=== PATIENT | male | born 1955 | race African-American/Black ===

== ENCOUNTER 2024-02-24 06:15 | Inpatient (IN) ==
[2024-02-24] MEDS: NOZIN NASAL SANITIZER TP ONE (06:36)
[2024-02-24] MEDS: ANCEF VIAL 1 GRAM ONE (06:36)
[2024-02-24] MEDS: LR 1,000 ML IV 1,000 ML IV ONE (06:37)
--- NOTE | 2024-02-24 06:59 | EKG ---
Test Reason : pre op Blood Pressure : */* mmHG Vent. Rate : 60 BPM Atrial Rate : 60 BPM P-R Int : 164 ms QRS Dur : 88 ms QT Int : 418 ms P-R-T Axes : 65 31 57 degrees QTc Int : 418 ms Normal sinus rhythm Normal ECG No previous ECGs available Confirmed by Alen Medina MD ([id number]) on 02/24/2024 12:31:06 PM Referred By: Confirmed By: Alen Medina MD
--- NOTE | 2024-02-24 07:10 | RAD ---
EXAMINATION: CHEST, 1 VIEW HISTORY: PRE OP AORTOGRAM, ARTERIOGRAM ENDARTERECTOMY ; . COMPARISON STUDY: None. TECHNIQUE: Single frontal view of the chest FINDINGS: Lungs are expanded. No focal pulmonary infiltrates. Borderline cardiac silhouette enlargement. Nor mal pulmonary vascular pattern. Postsurgical changes mediastinum. CP angles are sharp. Bones are i ntact. IMPRESSION: No acute pulmonary infiltrate seen. THIS IS AN ELECTRONICALLY VERIFIED FINAL REPORT 02/24/2024 7:07 AM - Electronically signed by Shaina Jaimes MD
[2024-02-24 07:14] LABS: BASOPHILS # (AUTO) 0.2 X10^3/uL (0.0-0.1); BASOPHILS % (AUTO) 1.6 % (0.2-1.0); EOSINOPHILS # (AUTO) 0.4 x10^3/uL (0.0-0.2); EOSINOPHILS % (AUTO) 3.9 % (0.9-2.9); HEMATOCRIT 26.3 % (42.0-54.0); HEMOGLOBIN 8.1 g/dL (13.5-18.0); LYMPHOCYTES # (AUTO) 2.5 X10^3/uL (1.3-2.9); LYMPHOCYTES % (AUTO) 26.3 % (21.0-51.0); MEAN CORPUSCULAR HEMOGLOBIN 21.9 pg (27.0-34.0); MEAN CORPUSCULAR HGB CONC 30.9 g/dL (33.0-35.0); MEAN CORPUSCULAR VOLUME 71.1 fL (80.0-100.0); MEAN PLATELET VOLUME 8.3 fL (7.4-11.0); MONOCYTES # (AUTO) 0.6 x10^3/uL (0.3-0.8); MONOCYTES % (AUTO) 6.6 % (0.0-13.0); NEUTROPHILS # (AUTO) 5.9 x10^3/uL (2.2-4.8); NEUTROPHILS % (AUTO) 61.6 % (42.0-75.0); PLATELET COUNT 458 X10^3/uL (150.0-450.0); RED BLOOD COUNT 3.69 X10^6/uL (4.7-6.0); RED CELL DISTRIBUTION WIDTH 19.8 % (11.6-16.5); WHITE BLOOD COUNT 9.5 X10^3/uL (3.6-10.0)
[2024-02-24 07:34] LABS: ALANINE AMINOTRANSFERASE 14 Units/L (12-78); ALBUMIN 3.8 g/dL (3.4-5.0); ALKALINE PHOSPHATASE 101 Units/L (46-116); ASPARTATE AMINO TRANSFERASE 17 Units/L (15-37); BLOOD UREA NITROGEN 30 mg/dL (7-18); CHLORIDE 102 mmol/L (98-107); CREATININE 1.34 mg/dL (0.70-1.30); GLUCOSE 101 mg/dL (65-99); POTASSIUM 3.6 mmol/L (3.5-5.1); SODIUM 138 mmol/L (136-145); TOTAL PROTEIN 7.8 g/dL (6.4-8.2); eGFR NON BLACK RACES 56 (>60)
[2024-02-24 07:37] LABS: ANISOCYTOSIS SLIGHT; HYPOCHROMASIA 1+; MICROCYTOSIS SLIGHT; OVALOCYTES SLIGHT; PLATELET MORPHOLOGY COMMENT NORMAL (NORMAL); POIKILOCYTOSIS SLIGHT
[2024-02-24] MEDS: DIPRIVAN VIAL 20 ML ONE ×2 (07:46→08:19)
[2024-02-24] MEDS: KETAMINE 50 MG/5 ML-NACL SYRNG ONE (07:46)
[2024-02-24] MEDS: VERSED ONE (07:46)
[2024-02-24] MEDS: FENTANYL VIAL INJ 100 mcg ONE ×2 (07:46→10:40)
[2024-02-24] MEDS: NS 100 ML IV 100 ML ONE (07:46)
[2024-02-24] MEDS: PRECEDEX INJ VIAL ONE (08:01)
[2024-02-24] MEDS: MARCAINE 0.5% ONE ×2 (08:13→10:09)
[2024-02-24] MEDS: HEPARIN SODIUM IN D5W 75,000 UNITS/1,500 ML BAG ONE (08:13)
[2024-02-24] MEDS: ROBINUL ONE (08:27)
[2024-02-24] MEDS: PEPCID 20 MG VIAL ONE (08:27)
[2024-02-24] MEDS: ZOFRAN INJ 4 MG VIAL ONE (08:27)
[2024-02-24] MEDS: HEPARIN SODIUM INJ 5000 UNITS ONE ×3 (08:31→11:36)
[2024-02-24] MEDS: EPHEDRINE SULFATE INJ ONE (08:34)
[2024-02-24] MEDS: NEO-SYNEPHRINE INJ ONE (09:04)
[2024-02-24] MEDS: VISIPAQUE 50 ML ONE (09:27)
[2024-02-24] MEDS: VISIPAQUE 100 ML ONE (09:27)
[2024-02-24] MEDS ORDERED: BARHEMSYS INJ IVP PRN (09:35)
[2024-02-24] MEDS ORDERED: REGLAN INJ 10 MG VIAL IVP PRN (09:35)
[2024-02-24] MEDS ORDERED: DILAUDID INJ IVP PRN (09:35)
[2024-02-24] MEDS ORDERED: ZOFRAN INJ 4 MG VIAL IVP PRN (09:35)
[2024-02-24] MEDS ORDERED: BENADRYL INJ 50 MG VIAL IVP PRN (09:35)
[2024-02-24] MEDS: OFIRMEV IV 1000 MG VIAL 1,000 MG/100 ML VIAL IV ONE (09:38)
--- NOTE | 2024-02-24 12:24 | OR.IMMED ---
IMMEDIATE POST-OP NOTE Immediate Post-Op Note Date of surgery/procedure: 02/24/24 Pre-Op Diagnosis: Critical ischemia right leg Post-Op Diagnosis: same Procedure: right common femoral endarterectomy patch Angioplasty , aortogram, arteriogram right leg, femoral femoral bypass, stinting entire right superficial femoral and popliteal artery, drug coted balloon angioplast tibial peroneal trunk on right Description of Procedure: see dictation Surgeon/Rn Maternity: Cornelius Findings: completely occluded right common and right external iliac arteries, occluded right common femoral artery, ocluded right superfricial and popliteal arteries reconstitution of the tibial peroneal trunk with runoff mainly via the right posterior tibial artery Estimated Blood Loss: 400 cc Complications: none Progress Notes: admit to CCU
[2024-02-24 12:33] LABS: HEMATOCRIT 21.8 % (42.0-54.0)
[2024-02-24 12:52] LABS: HEMOGLOBIN 6.6 g/dL (13.5-18.0)
[2024-02-24] MEDS: LR 1,000 ML IV 1,000 ML IV SCH (13:04)
[2024-02-24] MEDS: DILAUDID INJ IVP PRN (13:28)
[2024-02-24] MEDS: ATIVAN INJ 2 MG VIAL IVP ONE ×2 (14:41→15:16)
[2024-02-24] MEDS: PROTAMINE SULFATE 50 MG VIAL ONE (17:05)
[2024-02-24] MEDS: PROTAMINE SULFATE IVP ONE (17:06)
[2024-02-24 21:52] LABS: HEMATOCRIT 24.2 % (42.0-54.0); HEMOGLOBIN 7.5 g/dL (13.5-18.0)
[2024-02-24] MEDS: DESYREL PO SCH (21:55)
--- NOTE | 2024-02-24 23:19 | NOTE.SOAP ---
Soap Note Note for Day of Date of Exam: 02/24/24 Subjective Data Subjective Data: S/P fem -fem bypass, right femoral endarterecomy and patch, stenting of right superficial femoral artery and drug coated balloon angioplasty of the right tibial peroneal trunk.Post op Hgb was 6.6 and received i unit of PRBCS and post transfusion Hgb is 7.5.Patient confused post op but htat is improved . Has some bleeding from groin incisions now resolved Objective Data Temperature: 98.1 F Pulse Rate: 82 Respiratory Rate: 21 Blood Pressure: 141/68 Objective Data: as above, biphasic doppler signal of right DP and PT arteries . Assessment Assessment: critical ischemia right leg Plan Plan: Arterila flow improved right leg , Monitor Hgb. Hopefully d/c in AM.
[2024-02-25] MEDS ORDERED: ULTRAM PO PRN (04:13)
[2024-02-25] MEDS: ZOFRAN INJ 4 MG VIAL IVP PRN (04:29)
[2024-02-25 04:49] LABS: BASOPHILS # (AUTO) 0.1 X10^3/uL (0.0-0.1); BASOPHILS % (AUTO) 0.4 % (0.2-1.0); HEMOGLOBIN 7.5 g/dL (13.5-18.0); LYMPHOCYTES # (AUTO) 1.3 X10^3/uL (1.3-2.9); MEAN CORPUSCULAR HEMOGLOBIN 22.6 pg (27.0-34.0); MEAN CORPUSCULAR HGB CONC 31.3 g/dL (33.0-35.0); MEAN CORPUSCULAR VOLUME 72.1 fL (80.0-100.0); MEAN PLATELET VOLUME 9.1 fL (7.4-11.0); MONOCYTES % (AUTO) 7.2 % (0.0-13.0); NEUTROPHILS # (AUTO) 11.1 x10^3/uL (2.2-4.8); NEUTROPHILS % (AUTO) 82.4 % (42.0-75.0); PLATELET COUNT 359 X10^3/uL (150.0-450.0); RED BLOOD COUNT 3.33 X10^6/uL (4.7-6.0); RED CELL DISTRIBUTION WIDTH 19.3 % (11.6-16.5); WHITE BLOOD COUNT 13.5 X10^3/uL (3.6-10.0)
[2024-02-25 05:17] LABS: ANISOCYTOSIS SLIGHT; HYPOCHROMASIA 1+; MICROCYTOSIS SLIGHT; OVALOCYTES PRESENT; PLATELET MORPHOLOGY COMMENT NORMAL (NORMAL)
[2024-02-25] MEDS: ZESTORETIC 20/25 MG PO SCH (07:34)
[2024-02-25] MEDS: ZESTORETIC 20/25 MG ONE (08:15)
[2024-02-25] MEDS: VASOTEC INJ 2.5 MG VIAL IVP ONE (08:20)
[2024-02-25] MEDS: NITROGLYCERIN IV PREMIX 50 MG 50 MG/250 ML BAG IV PRN (09:45)
[2024-02-25] MEDS: PROTONIX TAB 40 MG PO SCH (11:06)
[2024-02-25] MEDS: ASPIRIN EC 81 MG PO SCH (11:06)
[2024-02-25] MEDS: PLAVIX PO SCH (11:07)
[2024-02-25] MEDS: LIPITOR TAB 20 MG PO SCH (11:07)
[2024-02-25] MEDS: FLOMAX PO SCH (11:07)
[2024-02-25] MEDS: K-DUR TAB 20 MEQ PO SCH (11:07)
[2024-02-25] MEDS: LOVENOX INJ 40 MG SYR SC SCH (11:50)
--- NOTE | 2024-02-25 16:57 | NOTE.SOAP ---
Soap Note Note for Day of Date of Exam: 02/25/24 Subjective Data Subjective Data: POD # 1 , confusion resolved , rest pain right leg relieved , required 1 units of PRBCS and Hgb stable at 7.5 grams . Despite his usual BP meds and his assurance he has been taking these mediations regularly His BP this AM was > 200 mm of Hg systolic Objective Data Temperature: 98.8 F Pulse Rate: 74 Respiratory Rate: 21 Blood Pressure: 170/75 O2 Sat by Pulse Oximetry: 100 Objective Data: incisions clean and dry both groins , no hematoma , excellent doppler signals right ankle. Assessment Assessment: S/P complex hybrid procedure revascularization of the arterial flow right leg , doing well except for hypertention Plan Plan: Begin NTG drip to controi BP and consult interist supervisor computer operations to adjust his BP meds to better control his BP.
[2024-02-25] MEDS: CATAPRES-TTS-2 TD SCH (18:09)
[2024-02-25] MEDS: APRESOLINE INJ 20 MG VIAL IVP ONE (18:09)
[2024-02-25] MEDS: CATAPRES TAB 0.1 MG PO ONE (18:09)
[2024-02-25] MEDS: NS 250 ML IV 250 ML IV ONE (20:12)
[2024-02-25] MEDS: ALDACTONE TAB 25 MG PO SCH (21:02)
[2024-02-25] MEDS: NORVASC TAB 10 MG PO SCH (21:02)
[2024-02-25] MEDS: CHECK PATCH XX SCH (21:03)
[2024-02-26 05:00] LABS: BASOPHILS # (AUTO) 0.1 X10^3/uL (0.0-0.1); BASOPHILS % (AUTO) 0.5 % (0.2-1.0); EOSINOPHILS % (AUTO) 0.1 % (0.9-2.9); HEMATOCRIT 20.8 % (42.0-54.0); LYMPHOCYTES # (AUTO) 1.5 X10^3/uL (1.3-2.9); LYMPHOCYTES % (AUTO) 9.8 % (21.0-51.0); MEAN CORPUSCULAR HEMOGLOBIN 22.6 pg (27.0-34.0); MEAN CORPUSCULAR HGB CONC 31.6 g/dL (33.0-35.0); MEAN CORPUSCULAR VOLUME 71.6 fL (80.0-100.0); MEAN PLATELET VOLUME 9.3 fL (7.4-11.0); MONOCYTES # (AUTO) 1.5 x10^3/uL (0.3-0.8); NEUTROPHILS # (AUTO) 12.2 x10^3/uL (2.2-4.8); NEUTROPHILS % (AUTO) 79.6 % (42.0-75.0); PLATELET COUNT 289 X10^3/uL (150.0-450.0); RED BLOOD COUNT 2.91 X10^6/uL (4.7-6.0); RED CELL DISTRIBUTION WIDTH 19.8 % (11.6-16.5); WHITE BLOOD COUNT 15.4 X10^3/uL (3.6-10.0)
[2024-02-26 05:04] LABS: ALANINE AMINOTRANSFERASE 10 Units/L (12-78); ALBUMIN 2.6 g/dL (3.4-5.0); ALKALINE PHOSPHATASE 79 Units/L (46-116); ASPARTATE AMINO TRANSFERASE 15 Units/L (15-37); BLOOD UREA NITROGEN 12 mg/dL (7-18); CALCIUM 8.1 mg/dL (8.5-10.1); CARBON DIOXIDE 29.6 mmol/L (21-32); CHLORIDE 98 mmol/L (98-107); COR CA(FOR HYPOALB) 9.2 mg/dL (8.5-10.1); CREATININE 0.96 mg/dL (0.70-1.30); GLUCOSE 106 mg/dL (65-99); MAGNESIUM 1.5 mg/dL (2.0-2.9); POTASSIUM 3.7 mmol/L (3.5-5.1); SODIUM 132 mmol/L (136-145); TOTAL PROTEIN 6.1 g/dL (6.4-8.2); eGFR NON BLACK RACES > 60 (>60)
[2024-02-26 05:24] LABS: HEMOGLOBIN 6.6 g/dL (13.5-18.0)
[2024-02-26 05:25] LABS: ANISOCYTOSIS SLIGHT; HYPOCHROMASIA 1+; MICROCYTOSIS SLIGHT; PLATELET MORPHOLOGY COMMENT NORMAL (NORMAL)
[2024-02-26 05:26] LABS: OVALOCYTES SLIGHT
[2024-02-26] MEDS ORDERED: CONSULT PHARMACY - POTASSIUM & MAGNESIUM XX SCH (06:00)
[2024-02-26] MEDS: NS 500 ML IV 500 ML IV ONE (07:00)
[2024-02-26] MEDS: MAG-OX TAB PO SCH (09:05)
[2024-02-26] MEDS: NORCO 7.5/325 MG TAB PO PRN (12:32)
[2024-02-26] MEDS: VIBRAMYCIN 100 MG in D5W 250 ML IV 250 ML IV SCH (12:33)
[2024-02-26] MEDS: K-DUR TAB 20 MEQ PO ONE (12:33)
[2024-02-26 16:02] LABS: HEMATOCRIT 27.3 % (42.0-54.0)
--- NOTE | 2024-02-26 20:06 | DR.CONSULT ---
CONSULT Consultation for Day of: Date: 02/26/24 Chief Complaint Chief Complaint: HTN Allergies Allergies Allergy/AdvReac Type Severity Reaction Status Date / Time No Known Allergies Allergy Verified 02/24/24 07:33 History of Present Illness History of Present Illness: Medicine consulted due to severe hypertension postop. Here under vascular surgery's care with procedures to the RLE. Originally on a nitro drip but now on Zestoretic, Norvasc, and Aldactone p.o. with clonidine topically. Blood pressure doing much better this morning with no chest pain, VIVEROS, headache, or vision changes. Has had some postop anemia requiring a couple units of PRBCs. Also had some AMS after procedures but that has been fully resolved for greater than 24 hours. Patient's only complaint today is pain, asking to resume his home [place]. PMH: Hypertension, PAD. PSH: Right femoral bypass. Social: , lives with spouse. Retired. Does not smoke, drink, or do illicit drugs. Family: Positive for CAD, HTN, HLD. Parents . ROS: 12 point ROS negative except as noted in HPI. Vitals, labs, and imaging reviewed. PE: Thin, elderly male in NAD. Head NCAT. Hearing intact to conversation. EOMI. Heart regular in rhythm. Lungs clear with good speech and unlabored respirations. Belly is soft, nontender, nondistended with bowel sounds present. Past Medical History Past Medical History: Anemia and Hypertension Past Surgical History Surgical History: CABG/Valve Surgery, Cholecystectomy and Lithotripsy Family History Family Medical History: [place], Coronary Artery Disease and Hypertension Social History Does patient currently use any type of tobacco product: No Type of Tobacco Use: None Does any household member use tobacco: Yes ( smokes at home) Alcohol Use: None Drug Use: None Medications Home Medications: No Known Allergies Allergy (Verified 02/24/24 07:33) CONTINUE taking the following medications amoxicillin 500 mg capsule 500 mg PO TID 02/24/24 [History] atorvastatin 40 mg tablet 20 mg PO QDAY 02/24/24 [History] gabapentin 600 mg tablet 600 mg PO QID 02/24/24 [History] hydrochlorothiazide 12.5 mg tablet 12.5 mg PO QDAY 02/24/24 [History] hydrocodone 10 mg-acetaminophen 325 mg tablet 1 tab PO Q4H PRN Pain 02/24/24 [History] pantoprazole 40 mg tablet,delayed release 40 mg PO BID 02/24/24 [History] potassium chloride 20 mEq tablet,extended release 20 meq PO QDAY 02/24/24 [History] tamsulosin 0.4 mg capsule 0.4 mg PO QDAY 02/24/24 [History] trazodone 100 mg tablet 100 mg PO QPM 02/24/24 [History] Physical Exam Vital Signs: Vital Signs Temperature 98.7 F Temperature 99.0 F Temperature 98.3 F Temperature 98.7 F Pulse Rate 77 Pulse Rate 83 Pulse Rate 89 Pulse Rate 89 Pulse Rate 82 Pulse Rate 82 Pulse Rate 80 Respiratory Rate 15 Respiratory Rate 15 Respiratory Rate 24 Respiratory Rate 20 Respiratory Rate 18 Respiratory Rate 17 Respiratory Rate 20 Respiratory Rate 14 Blood Pressure 113/54 Blood Pressure 137/63 Blood Pressure 113/57 Blood Pressure 104/58 Blood Pressure 109/56 Blood Pressure 107/55 Blood Pressure 106/57 O2 Sat by Pulse Oximetry 100 O2 Sat by Pulse Oximetry 99 O2 Sat by Pulse Oximetry 99 O2 Sat by Pulse Oximetry 98 O2 Sat by Pulse Oximetry 97 O2 Sat by Pulse Oximetry 97 O2 Sat by Pulse Oximetry 98 Plan (1) Essential (primary) hypertension: Status: Chronic Narrative Support Text: Continue Zestoretic, Norvasc, and Aldactone p.o. Continue clonidine topical. Continue clonidine p.o. as needed with hydralazine IV as needed. Patient now weaned off nitro drip. (2) PAD (peripheral artery disease): Status: Chronic Narrative Support Text: Per primary vascular surgery team. (3) Hyponatremia: Status: Acute Narrative Support Text: Replete per protocol. (4) Hypomagnesemia: Status: Acute Narrative Support Text: Replete per protocol. (5) Anemia, chronic disease: Status: Chronic Narrative Support Text: Transfuse to keep Hgb greater than 7.
--- NOTE | 2024-02-26 21:51 | NOTE.SOAP ---
Soap Note Note for Day of Date of Exam: 02/26/24 Subjective Data Subjective Data: S/p revascularization of the right leg. Right leg without rest pain. BP now under control with po medications asn NTG drip has been turned off since last night.Eating well. No further bleeding from the groins . Hgb this AM was 6.6 . Objective Data Temperature: 98.4 F Pulse Rate: 90 Respiratory Rate: 24 Blood Pressure: 130/58 Objective Data: Groins clean and dry after dressings changed . Right foot arm with biphasic flow in AT, DP and PT arteries . Assessment Assessment: S/P revascularization of the right leg, Right leg doing well. BPM under contol Post transfusion Hgb =9.0 grams Plan Plan: D/C home in AM
--- NOTE | 2024-02-26 22:56 | DR.OPNOTE ---
OP NOTE Pre-Op Diagnosis: right [place] occlus, right SFA and right [place]ER HOSTESS occlus , disease right tib-peronea Post-Op Diagnosis: same Procedure Date Date Of Procedure: 02/24/24 Procedure: PROCEDURE : Right femoral endarterectomy and patch angioplasty, diagnostic aortogram, diagnostic arteriogram, femoral femoral bypass, stenting right superficial femoral artery, and Drug coated balloon angioplasty right tibial peroneal trunk NARRATIVE : The patient was taken to the operative suite and placed in the supine position. The entire right leg and the left groin were prepped and draped in sterile fashion. Time out for the procedure obtained. Patient was given IV sedation supervised by myself. The right groin infiltrated with 0.5% Marcaine and a vertical incision made. Patient became restless and required placement of an LMA catheter for anesthesia. Sharp dissectionwas carried down identifying the common femoral , super ficial femoral and profunda femoris arteries . Vessel loops placed around all arteries . Patient was given 3000 units of IV Heparin. After 3 minutes the common femoral artery was clamped and the other vessels occluded with the vessel loops . The common femoral artery opened with a number 11 knife blade and Pott's scissors and endarterectomy carried out with a Hale dissector . Intima of the take off of the superficial femoral artery tacked down with interrupted 6 -0 Prolene sutures. All floating material removed. The arteriotomy closed using a 0.8 by 8 cm bovine pericardial patch. All clamps removed. There was no bleeding from the patch. At this point a pursestring suture was placed in the patch with 5-0 Prolene suture and a needle placed through the pursestring and a 0 .012 inch wire placed . Over the wire we placed a micro sheath and exchanged the small wire for a 0.035 inch wire and the micro sheath for a 5 Fr vascular sheath . Multiple attempots were made to place a wire through the completely occluded ocommon iliac artery occlusion .They were all unsuccessful with the wire getting into the sub intimal space. The posterior tibial artery at the ankle identified with ultrasound and the skin overlying it infiltrated with 0.5% Marcaine . Ultrasound used to guide puncture of the right posterior tibial artery and a 0.012 inch wire placed. Incision made over the wire at the skin edge and a micro sheath placed over the guide wire into the posterior tibial artery . Arteriogram confirmed that we were in the psterior tibial artrey. We exchanged the micro sheath for a 4 Fr slim sheath and using a [place] catheter to [place] the completely occluded superficial femoral artery all the way to the patch. Arteriogram confirmed this. This was a selective catheterization. Because we could not enter the [place] artery from the patch we elected to perform a femoral femoral bypass. The skin of the left groin was infiltrated with 0.5 % Marcaine and a vertical incision made with a number of 15 blade knife .Sharp dissection carried down to find the palpable common femoral artery and vessels loops placed around the common femoral artery, the superficial femoral artery and the profunda femoris aretery . 8 millimeter gortex ringed graft was tunneled between the 2 groin incisions. Patient given an additional 3,000 units of IV Heparin. The left commoin femoral opened after clamping it and controlling the other vessels with the vessel loops . The graft fashioned for anastomosis and anastomosis carried out with running 5-0 Prolene suture . Areriial flow then allowed through the graft . The graft was clamped and the artery on the right side clamped again and the mid portion of the patch opened with the number 11 knife and Pott's scissors. The graft fashioned for anastomosis and we perormed anastomosis to the patch itself with running 5-0 Prolene suture . Graft opened re-establishing arterial flow to both legs. There was no active bleeding. A third dose of IV heparin had been given. From Below arteriogram carried out showing the completely occluded superficial femoral artery and popliteal artery as well as a severely diseased tibial peroneal trunk. At this point, we placed an Ailin 7 millimetre by 150 millimetre stent proximally followed this with a 6 millimeter x150 millimeter Ailin stent and a third 6 millimetre by 120 millimetre Elivia stent and a fourth stennt measuring 6 millimeter X 120 millimeters to completely line the superficial femoral and popliteal arteries with stents, . All stents balloon dilated with a 6 millimeter [place] balloon. Finally the tiibial peroneal trunk was balloon dilated with a drug-coated Tow 4 millimeter x 100 millimeter balloon inflating it for 3 minutes. After this, post procedure arteriogram showed excellent flow through the femoral femoral graft and through the entire right leg all the way to the ankle. At this point both groins closed with 2 layers of running 3 -0 Vicryl suture the skin closed with sameer. Tibial band was used to control the bleeding at the ankle where the posterior tibial artery had been accessed. Patient was extubated ated and taken to PACU for recovery and then to the ICU for continued care. Type of Anesthesia: Local (0.5% Marcaine ) Anesthesia Comment: plus MAC, converted to LMA Findings: as above Type of Fluids Used:: Lactated Ringers Total Amount of Fluid Infused:: 1600 cc Urine output: 350 cc EBL: 400 cc Hardware: Ailin stents x 4 in right SFA Complications:: none Needle/Sponge Count:: correct Disposition/Condition: Pt. tolerated procedure without difficulty. Extubated in the OR and taken to PACU in stable condition.
[2024-02-27 06:04] LABS: BASOPHILS # (AUTO) 0.1 X10^3/uL (0.0-0.1); BASOPHILS % (AUTO) 0.6 % (0.2-1.0); EOSINOPHILS # (AUTO) 0.3 x10^3/uL (0.0-0.2); EOSINOPHILS % (AUTO) 1.8 % (0.9-2.9); HEMATOCRIT 24.8 % (42.0-54.0); HEMOGLOBIN 8.3 g/dL (13.5-18.0); LYMPHOCYTES # (AUTO) 1.8 X10^3/uL (1.3-2.9); LYMPHOCYTES % (AUTO) 12.4 % (21.0-51.0); MEAN CORPUSCULAR HGB CONC 33.3 g/dL (33.0-35.0); MEAN PLATELET VOLUME 9.3 fL (7.4-11.0); MONOCYTES # (AUTO) 1.4 x10^3/uL (0.3-0.8); MONOCYTES % (AUTO) 9.9 % (0.0-13.0); NEUTROPHILS # (AUTO) 10.9 x10^3/uL (2.2-4.8); NEUTROPHILS % (AUTO) 75.3 % (42.0-75.0); PLATELET COUNT 257 X10^3/uL (150.0-450.0); RED CELL DISTRIBUTION WIDTH 21.2 % (11.6-16.5); WHITE BLOOD COUNT 14.5 X10^3/uL (3.6-10.0)
[2024-02-27 06:25] LABS: ALANINE AMINOTRANSFERASE 11 Units/L (12-78); ALBUMIN 2.4 g/dL (3.4-5.0); ALKALINE PHOSPHATASE 76 Units/L (46-116); ASPARTATE AMINO TRANSFERASE 17 Units/L (15-37); BLOOD UREA NITROGEN 15 mg/dL (7-18); CALCIUM 8.4 mg/dL (8.5-10.1); CHLORIDE 98 mmol/L (98-107); COR CA(FOR HYPOALB) 9.7 mg/dL (8.5-10.1); GLUCOSE 107 mg/dL (65-99); MAGNESIUM 1.7 mg/dL (2.0-2.9); SODIUM 132 mmol/L (136-145); TOTAL PROTEIN 6.2 g/dL (6.4-8.2); eGFR NON BLACK RACES > 60 (>60)
[2024-02-27 06:47] LABS: PLATELET MORPHOLOGY COMMENT NORMAL (NORMAL)
[2024-02-27 06:48] LABS: ANISOCYTOSIS 1+; HYPOCHROMASIA SLIGHT; MICROCYTOSIS SLIGHT
[2024-02-27] MEDS ORDERED: CONSULT PHARMACY - POTASSIUM & MAGNESIUM XX SCH (07:00)
[2024-02-27] MEDS: MAG-OX TAB PO SCH (08:54)
[2024-02-27 13:18] VITALS: TEMP 98
--- NOTE | 2024-02-27 14:17 | NOTE.SOAP ---
Soap Note Note for Day of Date of Exam: 02/27/24 Subjective Data Subjective Data: Patient did well overnight. BP now on the lower end. Denies any new complaints. Surgery thinking of discharging later today. Objective Data Objective Data: Developed, well-nourished male in no acute distress. Hearing intact conversation. Head NCAT. Heart regular rate and rhythm. Lungs are clear bilat erally. Mood and affect appropriate. Bowel sounds present and belly is soft and nontender. Little bit of edema of the right leg that is nonpitting. Assessment Assessment: 1. Ess HTN 2. PAD 3. Anemia of chronic disease Plan Plan: Stop clonidine patch. Continue other meds at discharge. F/U with PCP for repeat labs and med adjustments.
--- NOTE | 2024-02-27 15:17 | W.DIS.FURT ---
Summary of Discharge Discharge Summary of Date Date of Exam: 02/27/24 Admission Date Date of Admission: 02/24/24 Admission Diagnosis Hospital Course: This is a 69 year old male with significant peripheral vascular disease known to have complete occlusion of the right common jah artery and complete occlusion of the right superficial femoral artery. He required a hybrid procedure of attempted stenting of the right common iliac artery after right common femoral endarterectomy and Patch angioplasty for his common femoral occlusion but I could not a wire across the right iliac artery occlusion into the [place] aorta . Therefore he underwent a femoral femoral bypass and stenting of the right superficial femoral artery. He has done well in that regard with excellent biphasic doppler signals in both the anterior tibial and posrterior tibial arteries. Post procedure he did have some bleeding from his groin incisions and did require 2 units of packed red blood cells. A t time of discharge his hemoglobin is 8.3 grams. He also had some hypertension despite his usual home medication and was seen in consultation by Dr Ballard who added a regimen of spironolactone and Norvasc to his current blood pressure medications. He will be discharged home with this time. Encourage ambulation. He may shower and get the wounds in the groins damp but pat them dry dry. He will follow up with me in 1 week. At that time we will consider removing sameer in each groin incision and he will need to be scheduled for intervention of the left superficial artery occlusion. Vital Signs: Vital Signs (72 hours) 02/24/24 23:19 02/25/24 16:57 02/26/24 21:51 Temperature 98.1 F 98.8 F 98.4 F Pulse Rate 82 74 90 Pulse Rate [Radial] Respiratory Rate 21 21 24 Blood Pressure 141/68 170/75 130/58 Blood Pressure [Left Arm] O2 Sat by Pulse Oximetry 100 Oxygen Delivery Method 02/24/24 15:44 02/24/24 15:46 02/24/24 16:40 Temperature 98.3 F 98.3 F 94.9 F L Pulse Rate Pulse Rate [Radial] 72 72 61 Respiratory Rate 17 17 12 Blood Pressure Blood Pressure [Left Arm] 151/82 151/82 177/83 O2 Sat by Pulse Oximetry 100 100 100 Oxygen Delivery Method 02/24/24 16:40 02/24/24 17:00 02/24/24 17:38 Temperature 94.9 F L 94.9 F L 97.6 F Pulse Rate Pulse Rate [Radial] 61 66 94 H Respiratory Rate 12 14 19 Blood Pressure Blood Pressure [Left Arm] 177/83 134/73 107/69 O2 Sat by Pulse Oximetry 100 100 100 Oxygen Delivery Method 02/24/24 17:57 02/24/24 18:00 02/24/24 18:26 Temperature 96.5 F L 69.1 F L 97.5 F L Pulse Rate Pulse Rate [Radial] 71 Respiratory Rate 15 Blood Pressure Blood Pressure [Left Arm] 121/70 O2 Sat by Pulse Oximetry 100 Oxygen Delivery Method 02/24/24 19:00 02/24/24 19:00 02/24/24 20:00 Temperature 98.1 F Pulse Rate Pulse Rate [Radial] 103 H 93 H Respiratory Rate 20 14 Blood Pressure Blood Pressure [Left Arm] 106/68 127/72 O2 Sat by Pulse Oximetry 100 100 Oxygen Delivery Method Room Air Room Air Room Air 02/24/24 21:00 02/24/24 21:54 02/25/24 01:17 Temperature Pulse Rate Pulse Rate [Radial] 71 Respiratory Rate 19 20 78 H Blood Pressure Blood Pressure [Left Arm] 156/81 O2 Sat by Pulse Oximetry 100 Oxygen Delivery Method Room Air 02/24/24 22:00 02/24/24 23:00 02/25/24 00:00 Temperature 98.1 F Pulse Rate Pulse Rate [Radial] 82 67 65 Respiratory Rate 21 16 20 Blood Pressure Blood Pressure [Left Arm] 141/68 146/65 154/71 O2 Sat by Pulse Oximetry 100 100 100 Oxygen Delivery Method Room Air Room Air Room Air 02/24/24 22:24 02/25/24 01:00 02/25/24 02:00 Temperature Pulse Rate Pulse Rate [Radial] 67 60 Respiratory Rate 18 22 14 Blood Pressure Blood Pressure [Left Arm] 179/82 172/74 O2 Sat by Pulse Oximetry 100 100 Oxygen Delivery Method Room Air Room Air 02/25/24 01:47 02/25/24 04:29 02/25/24 03:00 Temperature Pulse Rate Pulse Rate [Radial] 72 Respiratory Rate 20 18 17 Blood Pressure Blood Pressure [Left Arm] 170/81 O2 Sat by Pulse Oximetry 99 Oxygen Delivery Method Room Air 02/25/24 04:00 02/25/24 04:59 02/25/24 05:00 Temperature 98.4 F Pulse Rate Pulse Rate [Radial] 76 60 Respiratory Rate 17 17 14 Blood Pressure Blood Pressure [Left Arm] 170/76 140/66 O2 Sat by Pulse Oximetry 99 100 Oxygen Delivery Method Room Air Room Air 02/25/24 06:00 02/25/24 07:00 02/25/24 15:28 Temperature 98.7 F Pulse Rate Pulse Rate [Radial] 62 62 Respiratory Rate 12 15 15 Blood Pressure Blood Pressure [Left Arm] 188/88 203/88 O2 Sat by Pulse Oximetry 99 99 Oxygen Delivery Method Room Air Room Air 02/25/24 08:00 02/25/24 09:00 02/25/24 10:00 Temperature 97.9 F 97.9 F Pulse Rate Pulse Rate [Radial] 71 64 66 Respiratory Rate 23 16 17 Blood Pressure Blood Pressure [Left Arm] 213/93 208/90 215/88 O2 Sat by Pulse Oximetry 100 100 100 Oxygen Delivery Method Room Air Room Air Room Air 02/25/24 11:00 02/25/24 07:00 02/25/24 12:00 Temperature 97.5 F L Pulse Rate Pulse Rate [Radial] 66 67 Respiratory Rate 15 22 Blood Pressure Blood Pressure [Left Arm] 173/81 181/83 O2 Sat by Pulse Oximetry 100 100 Oxygen Delivery Method Room Air Room Air Room Air 02/25/24 13:00 02/25/24 14:00 02/25/24 15:00 Temperature 97.5 F L 98.5 F Pulse Rate Pulse Rate [Radial] 67 67 76 Respiratory Rate 20 15 15 Blood Pressure Blood Pressure [Left Arm] 194/81 182/83 149/67 O2 Sat by Pulse Oximetry 100 100 100 Oxygen Delivery Method Room Air Room Air Room Air 02/25/24 16:00 02/25/24 15:58 02/25/24 17:00 Temperature 98.8 F 98.7 F Pulse Rate Pulse Rate [Radial] 74 69 Respiratory Rate 21 21 19 Blood Pressure Blood Pressure [Left Arm] 170/75 183/79 O2 Sat by Pulse Oximetry 100 100 Oxygen Delivery Method Room Air Room Air 02/25/24 17:21 02/25/24 18:00 02/25/24 17:41 Temperature 98.7 F Pulse Rate Pulse Rate [Radial] 89 Respiratory Rate 14 Blood Pressure Blood Pressure [Left Arm] 167/78 174/73 159/73 O2 Sat by Pulse Oximetry 100 Oxygen Delivery Method Room Air 02/25/24 19:01 02/25/24 19:00 02/25/24 19:00 Temperature Pulse Rate Pulse Rate [Radial] 90 90 Respiratory Rate 16 16 Blood Pressure Blood Pressure [Left Arm] 151/65 151/65 O2 Sat by Pulse Oximetry 98 98 Oxygen Delivery Method Room Air Room Air Room Air 02/25/24 22:00 02/25/24 23:00 02/26/24 00:00 Temperature 99.1 F Pulse Rate 101 H 96 H 90 Pulse Rate [Radial] Respiratory Rate 20 22 24 Blood Pressure 96/52 119/65 133/61 Blood Pressure [Left Arm] O2 Sat by Pulse Oximetry 98 98 97 Oxygen Delivery Method Room Air Room Air Room Air 02/26/24 01:00 02/26/24 03:00 02/25/24 20:00 Temperature 98.4 F Pulse Rate 89 79 101 H Pulse Rate [Radial] Respiratory Rate 26 H 14 21 Blood Pressure 115/58 119/56 145/67 Blood Pressure [Left Arm] O2 Sat by Pulse Oximetry 98 99 95 Oxygen Delivery Method Room Air Room Air Room Air 02/25/24 21:09 02/25/24 21:00 02/25/24 21:39 Temperature Pulse Rate 98 H Pulse Rate [Radial] Respiratory Rate 20 24 17 Blood Pressure 148/70 Blood Pressure [Left Arm] O2 Sat by Pulse Oximetry 100 Oxygen Delivery Method Room Air 02/26/24 01:54 02/26/24 02:00 02/26/24 02:24 Temperature Pulse Rate 86 Pulse Rate [Radial] Respiratory Rate 24 20 20 Blood Pressure 95/50 Blood Pressure [Left Arm] O2 Sat by Pulse Oximetry 98 Oxygen Delivery Method Room Air 02/26/24 04:00 02/26/24 05:00 02/26/24 06:00 Temperature 98.4 F Pulse Rate 77 80 82 Pulse Rate [Radial] Respiratory Rate 15 14 20 Blood Pressure 113/54 106/57 107/55 Blood Pressure [Left Arm] O2 Sat by Pulse Oximetry 100 98 97 Oxygen Delivery Method Room Air Room Air Room Air 02/26/24 07:00 02/26/24 07:00 02/26/24 08:00 Temperature 98.7 F 98.3 F Pulse Rate 82 89 Pulse Rate [Radial] Respiratory Rate 17 18 Blood Pressure 109/56 104/58 Blood Pressure [Left Arm] O2 Sat by Pulse Oximetry 97 98 Oxygen Delivery Method Room Air Room Air Room Air 02/26/24 09:00 02/26/24 10:00 02/26/24 11:00 Temperature 99.0 F 98.7 F Pulse Rate 89 83 77 Pulse Rate [Radial] Respiratory Rate 20 24 15 Blood Pressure 113/57 137/63 113/54 Blood Pressure [Left Arm] O2 Sat by Pulse Oximetry 99 99 100 Oxygen Delivery Method Room Air Room Air Room Air 02/26/24 12:32 02/26/24 12:00 02/26/24 13:00 Temperature 98.7 F 98.5 F Pulse Rate 83 88 Pulse Rate [Radial] Respiratory Rate 15 17 20 Blood Pressure 118/57 145/67 Blood Pressure [Left Arm] O2 Sat by Pulse Oximetry 97 100 Oxygen Delivery Method Room Air Room Air 02/26/24 14:00 02/26/24 13:32 02/26/24 15:00 Temperature 98.5 F 98.4 F Pulse Rate 79 87 Pulse Rate [Radial] Respiratory Rate 26 H 14 22 Blood Pressure 145/65 151/72 Blood Pressure [Left Arm] O2 Sat by Pulse Oximetry 100 100 Oxygen Delivery Method Room Air Room Air 02/26/24 16:00 02/26/24 17:00 02/26/24 18:00 Temperature Pulse Rate 83 84 82 Pulse Rate [Radial] Respiratory Rate 17 15 22 Blood Pressure 140/63 178/65 156/65 Blood Pressure [Left Arm] O2 Sat by Pulse Oximetry 100 100 100 Oxygen Delivery Method Room Air Room Air Room Air 02/26/24 19:28 02/26/24 21:07 02/26/24 19:00 Temperature Pulse Rate Pulse Rate [Radial] Respiratory Rate 20 20 Blood Pressure Blood Pressure [Left Arm] O2 Sat by Pulse Oximetry Oxygen Delivery Method Room Air 02/26/24 19:00 02/26/24 20:00 02/26/24 19:58 Temperature 98.4 F Pulse Rate 84 90 Pulse Rate [Radial] Respiratory Rate 20 24 20 Blood Pressure 156/69 130/58 Blood Pressure [Left Arm] O2 Sat by Pulse Oximetry 100 96 Oxygen Delivery Method Room Air Room Air 02/26/24 21:00 02/26/24 22:00 02/26/24 23:00 Temperature Pulse Rate 91 H 88 81 Pulse Rate [Radial] Respiratory Rate 23 19 24 Blood Pressure 136/65 116/59 111/56 Blood Pressure [Left Arm] O2 Sat by Pulse Oximetry 98 99 99 Oxygen Delivery Method Room Air Room Air Room Air 02/27/24 00:00 02/26/24 22:07 02/27/24 01:07 Temperature 98.4 F Pulse Rate 74 Pulse Rate [Radial] Respiratory Rate 24 20 16 Blood Pressure 115/56 Blood Pressure [Left Arm] O2 Sat by Pulse Oximetry 97 Oxygen Delivery Method Room Air 02/27/24 01:00 02/27/24 02:00 02/27/24 03:00 Temperature Pulse Rate 81 82 68 Pulse Rate [Radial] Respiratory Rate 15 20 14 Blood Pressure 123/59 133/62 96/54 Blood Pressure [Left Arm] O2 Sat by Pulse Oximetry 97 98 97 Oxygen Delivery Method Room Air Room Air Room Air 02/27/24 04:00 02/27/24 05:00 02/27/24 01:37 Temperature 98.1 F Pulse Rate 66 66 Pulse Rate [Radial] Respiratory Rate 15 13 14 Blood Pressure 105/56 103/52 Blood Pressure [Left Arm] O2 Sat by Pulse Oximetry 96 99 Oxygen Delivery Method Room Air Room Air 02/27/24 06:00 02/26/24 21:30 02/26/24 21:45 Temperature Pulse Rate 68 84 82 Pulse Rate [Radial] Respiratory Rate 21 26 H 17 Blood Pressure 101/51 Blood Pressure [Left Arm] O2 Sat by Pulse Oximetry 96 99 97 Oxygen Delivery Method Room Air 02/26/24 22:00 02/26/24 22:01 02/26/24 22:01 Temperature Pulse Rate 86 88 Pulse Rate [Radial] Respiratory Rate 29 H 19 Blood Pressure 116/59 Blood Pressure [Left Arm] O2 Sat by Pulse Oximetry 97 99 Oxygen Delivery Method 02/26/24 22:15 02/26/24 22:30 02/26/24 22:45 Temperature Pulse Rate 89 75 79 Pulse Rate [Radial] Respiratory Rate 17 19 18 Blood Pressure Blood Pressure [Left Arm] O2 Sat by Pulse Oximetry 100 98 98 Oxygen Delivery Method 02/26/24 23:00 02/26/24 23:00 02/26/24 23:15 Temperature Pulse Rate 81 81 Pulse Rate [Radial] Respiratory Rate 26 H 22 Blood Pressure 111/56 Blood Pressure [Left Arm] O2 Sat by Pulse Oximetry 99 98 Oxygen Delivery Method 02/26/24 23:30 02/26/24 23:45 02/27/24 00:00 Temperature Pulse Rate 80 77 74 Pulse Rate [Radial] Respiratory Rate 20 22 24 Blood Pressure Blood Pressure [Left Arm] O2 Sat by Pulse Oximetry 99 98 97 Oxygen Delivery Method 02/27/24 00:00 02/27/24 00:15 02/27/24 00:30 Temperature Pulse Rate 80 81 Pulse Rate [Radial] Respiratory Rate 26 H 23 Blood Pressure 115/56 Blood Pressure [Left Arm] O2 Sat by Pulse Oximetry 100 97 Oxygen Delivery Method 02/27/24 00:45 02/27/24 01:00 02/27/24 01:00 Temperature Pulse Rate 88 77 Pulse Rate [Radial] Respiratory Rate 30 H 22 Blood Pressure 123/59 Blood Pressure [Left Arm] O2 Sat by Pulse Oximetry 98 99 Oxygen Delivery Method 02/27/24 01:15 02/27/24 01:30 02/27/24 01:45 Temperature Pulse Rate 79 75 77 Pulse Rate [Radial] Respiratory Rate 19 29 H 27 H Blood Pressure Blood Pressure [Left Arm] O2 Sat by Pulse Oximetry 98 96 96 Oxygen Delivery Method 02/27/24 02:00 02/27/24 02:00 02/27/24 02:15 Temperature Pulse Rate 91 H 76 Pulse Rate [Radial] Respiratory Rate 25 H 18 Blood Pressure 133/61 Blood Pressure [Left Arm] O2 Sat by Pulse Oximetry 99 96 Oxygen Delivery Method 02/27/24 02:30 02/27/24 02:45 02/27/24 03:00 Temperature Pulse Rate 72 77 Pulse Rate [Radial] Respiratory Rate 20 28 H Blood Pressure 96/54 Blood Pressure [Left Arm] O2 Sat by Pulse Oximetry 97 100 Oxygen Delivery Method 02/27/24 03:00 02/27/24 03:15 02/27/24 03:30 Temperature Pulse Rate 68 68 69 Pulse Rate [Radial] Respiratory Rate 14 14 14 Blood Pressure Blood Pressure [Left Arm] O2 Sat by Pulse Oximetry 97 97 98 Oxygen Delivery Method 02/27/24 03:45 02/27/24 04:00 02/27/24 04:00 Temperature Pulse Rate 80 66 Pulse Rate [Radial] Respiratory Rate 33 H 15 Blood Pressure 105/56 Blood Pressure [Left Arm] O2 Sat by Pulse Oximetry 97 96 Oxygen Delivery Method 02/27/24 04:15 02/27/24 04:30 02/27/24 04:45 Temperature Pulse Rate 70 72 74 Pulse Rate [Radial] Respiratory Rate 20 15 14 Blood Pressure Blood Pressure [Left Arm] O2 Sat by Pulse Oximetry 96 96 96 Oxygen Delivery Method 02/27/24 05:00 02/27/24 05:00 02/27/24 05:15 Temperature Pulse Rate 70 70 Pulse Rate [Radial] Respiratory Rate 13 13 Blood Pressure 103/52 Blood Pressure [Left Arm] O2 Sat by Pulse Oximetry 95 97 Oxygen Delivery Method 02/27/24 05:30 02/27/24 05:45 02/27/24 06:00 Temperature Pulse Rate 68 69 Pulse Rate [Radial] Respiratory Rate 15 16 Blood Pressure 101/51 Blood Pressure [Left Arm] O2 Sat by Pulse Oximetry 96 96 Oxygen Delivery Method 02/27/24 06:00 02/27/24 06:15 02/27/24 06:30 Temperature Pulse Rate 68 80 77 Pulse Rate [Radial] Respiratory Rate 21 19 18 Blood Pressure Blood Pressure [Left Arm] O2 Sat by Pulse Oximetry 96 96 97 Oxygen Delivery Method 02/27/24 06:45 02/27/24 06:59 02/27/24 07:00 Temperature Pulse Rate 77 75 Pulse Rate [Radial] Respiratory Rate 16 17 Blood Pressure 85/54 Blood Pressure [Left Arm] O2 Sat by Pulse Oximetry 96 97 Oxygen Delivery Method 02/27/24 07:00 02/27/24 07:00 02/27/24 07:15 Temperature Pulse Rate 78 91 H Pulse Rate [Radial] Respiratory Rate 12 38 H Blood Pressure Blood Pressure [Left Arm] O2 Sat by Pulse Oximetry 97 97 Oxygen Delivery Method Room Air 02/27/24 07:30 02/27/24 07:45 02/27/24 08:00 Temperature 99.1 F Pulse Rate 89 79 Pulse Rate [Radial] Respiratory Rate 41 H 21 Blood Pressure 108/52 Blood Pressure [Left Arm] O2 Sat by Pulse Oximetry 96 96 Oxygen Delivery Method 02/27/24 08:00 02/27/24 08:15 02/27/24 08:30 Temperature Pulse Rate 80 78 79 Pulse Rate [Radial] Respiratory Rate 27 H 31 H 16 Blood Pressure Blood Pressure [Left Arm] O2 Sat by Pulse Oximetry 93 L 97 97 Oxygen Delivery Method 02/27/24 08:45 02/27/24 08:54 02/27/24 08:54 Temperature Pulse Rate 75 87 Pulse Rate [Radial] Respiratory Rate 13 20 Blood Pressure 104/58 Blood Pressure [Left Arm] O2 Sat by Pulse Oximetry 98 97 Oxygen Delivery Method 02/27/24 09:00 02/27/24 09:00 02/27/24 09:00 Temperature Pulse Rate 82 Pulse Rate [Radial] Respiratory Rate 23 Blood Pressure 114/56 114/56 Blood Pressure [Left Arm] O2 Sat by Pulse Oximetry 97 Oxygen Delivery Method 02/27/24 09:00 02/27/24 09:15 02/27/24 09:30 Temperature Pulse Rate 83 79 Pulse Rate [Radial] Respiratory Rate 20 15 Blood Pressure 114/56 Blood Pressure [Left Arm] O2 Sat by Pulse Oximetry 99 97 Oxygen Delivery Method 02/27/24 09:45 02/27/24 10:00 02/27/24 10:01 Temperature Pulse Rate 71 80 Pulse Rate [Radial] Respiratory Rate 17 22 Blood Pressure 114/56 Blood Pressure [Left Arm] O2 Sat by Pulse Oximetry 99 98 Oxygen Delivery Method 02/27/24 10:01 02/27/24 10:01 02/27/24 10:15 Temperature Pulse Rate 82 81 Pulse Rate [Radial] Respiratory Rate 20 27 H Blood Pressure 114/56 Blood Pressure [Left Arm] O2 Sat by Pulse Oximetry 99 98 Oxygen Delivery Method 02/27/24 10:30 02/27/24 10:45 02/27/24 11:00 Temperature Pulse Rate 76 85 73 Pulse Rate [Radial] Respiratory Rate 19 35 H 20 Blood Pressure Blood Pressure [Left Arm] O2 Sat by Pulse Oximetry 98 100 97 Oxygen Delivery Method 02/27/24 11:00 02/27/24 11:00 02/27/24 11:00 Temperature Pulse Rate Pulse Rate [Radial] Respiratory Rate Blood Pressure 105/58 105/58 105/58 Blood Pressure [Left Arm] O2 Sat by Pulse Oximetry Oxygen Delivery Method 02/27/24 11:00 02/27/24 11:15 02/27/24 11:30 Temperature Pulse Rate 76 81 Pulse Rate [Radial] Respiratory Rate 16 20 Blood Pressure 105/58 Blood Pressure [Left Arm] O2 Sat by Pulse Oximetry 98 99 Oxygen Delivery Method 02/27/24 11:45 02/27/24 12:00 02/27/24 12:00 Temperature Pulse Rate 75 65 Pulse Rate [Radial] Respiratory Rate 18 11 L Blood Pressure 105/55 Blood Pressure [Left Arm] O2 Sat by Pulse Oximetry 99 99 Oxygen Delivery Method 02/27/24 12:15 02/27/24 12:30 02/27/24 12:45 Temperature 98.0 F Pulse Rate 70 83 79 Pulse Rate [Radial] Respiratory Rate 14 19 23 Blood Pressure Blood Pressure [Left Arm] O2 Sat by Pulse Oximetry 99 98 100 Oxygen Delivery Method 02/27/24 13:00 02/27/24 13:00 02/27/24 13:00 Temperature Pulse Rate Pulse Rate [Radial] Respiratory Rate Blood Pressure 114/53 114/53 114/53 Blood Pressure [Left Arm] O2 Sat by Pulse Oximetry Oxygen Delivery Method 02/27/24 13:00 02/27/24 13:15 02/27/24 13:30 Temperature Pulse Rate 81 82 78 Pulse Rate [Radial] Respiratory Rate 18 23 17 Blood Pressure Blood Pressure [Left Arm] O2 Sat by Pulse Oximetry 99 99 100 Oxygen Delivery Method 02/27/24 13:45 02/27/24 14:00 02/27/24 14:00 Temperature Pulse Rate 84 75 Pulse Rate [Radial] Respiratory Rate 34 H 20 Blood Pressure 92/55 Blood Pressure [Left Arm] O2 Sat by Pulse Oximetry 100 97 Oxygen Delivery Method Labs: Laboratory Last Values WBC 14.5 X10^3/uL (3.6-10.0) H 02/27/24 04:05 RBC 3.30 X10^6/uL (4.7-6.0) L 02/27/24 04:05 Hgb 8.3 g/dL (13.5-18.0) L 02/27/24 04:05 Hct 24.8 % (42.0-54.0) L 02/27/24 04:05 MCV 75.0 fL (80.0-100.0) L 02/27/24 04:05 MCH 25.0 pg (27.0-34.0) L 02/27/24 04:05 MCHC 33.3 g/dL (33.0-35.0) 02/27/24 04:05 RDW 21.2 % (11.6-16.5) H 02/27/24 04:05 Plt Count 257 X10^3/uL (150.0-450.0) 02/27/24 04:05 Plt Count Comment Adequate (ADEQUATE) 02/27/24 04:05 MPV 9.3 fL (7.4-11.0) 02/27/24 04:05 Neut % (Auto) 75.3 % (42.0-75.0) H 02/27/24 04:05 Lymph % (Auto) 12.4 % (21.0-51.0) L 02/27/24 04:05 Fleming % (Auto) 9.9 % (0.0-13.0) 02/27/24 04:05 Eos % (Auto) 1.8 % (0.9-2.9) 02/27/24 04:05 Baso % (Auto) 0.6 % (0.2-1.0) 02/27/24 04:05 Neut # (Auto) 10.9 x10^3/uL (2.2-4.8) H 02/27/24 04:05 Lymph # (Auto) 1.8 X10^3/uL (1.3-2.9) 02/27/24 04:05 Fleming # (Auto) 1.4 x10^3/uL (0.3-0.8) H 02/27/24 04:05 Eos # (Auto) 0.3 x10^3/uL (0.0-0.2) H 02/27/24 04:05 Baso # (Auto) 0.1 X10^3/uL (0.0-0.1) 02/27/24 04:05 Absolute Nucleated RBC 0.1 /100WBC 02/27/24 04:05 Plt Morphology Comment Normal (NORMAL) 02/27/24 04:05 RBC Morphology Abnormal (NORMAL) 02/27/24 04:05 Hypochromasia Slight A 02/27/24 04:05 Poikilocytosis Slight A 02/24/24 07:02 Anisocytosis 1+ A 02/27/24 04:05 Microcytosis Slight A 02/27/24 04:05 Ovalocytes Slight A 02/26/24 04:00 Acanthocytes (Spur) Present 02/25/24 04:11 Sodium 132 mmol/L (136-145) L 02/27/24 04:05 Corrected Sodium TNP 02/27/24 04:05 Potassium 4.0 mmol/L (3.5-5.1) 02/27/24 04:05 Chloride 98 mmol/L (98-107) 02/27/24 04:05 Carbon Dioxide 30.0 mmol/L (21-32) 02/27/24 04:05 BUN 15 mg/dL (7-18) 02/27/24 04:05 Creatinine 1.00 mg/dL (0.70-1.30) 02/27/24 04:05 Est GFR (MDRD) Af Amer > 60 (>60) 02/27/24 04:05 Est GFR (MDRD) Non-Af > 60 (>60) 02/27/24 04:05 Glucose 107 mg/dL (65-99) H 02/27/24 04:05 Calcium 8.4 mg/dL (8.5-10.1) L 02/27/24 04:05 Corrected Calcium 9.7 mg/dL (8.5-10.1) 02/27/24 04:05 Magnesium 1.7 mg/dL (2.0-2.9) L 02/27/24 04:05 Total Bilirubin 0.60 mg/dL (0.2-1.0) 02/27/24 04:05 AST 17 Units/L (15-37) 02/27/24 04:05 ALT 11 Units/L (12-78) L 02/27/24 04:05 Alkaline Phosphatase 76 Units/L (46-116) 02/27/24 04:05 Total Protein 6.2 g/dL (6.4-8.2) L 02/27/24 04:05 Albumin 2.4 g/dL (3.4-5.0) L 02/27/24 04:05 Globulin 3.8 g/dL (2.5-4.5) 02/27/24 04:05 Albumin/Globulin Ratio 0.6 Ratio (1.1-2.1) L 02/27/24 04:05 Blood Type O POSITIVE 02/24/24 07:02 Blood Type O POSITIVE 02/24/24 07:02 Antibody Screen Negative 02/24/24 07:02 Crossmatch See Detail 02/24/24 07:02 Reason For Visit: AORTOGRAM ARTERIOGRAM ENDARTERECTOMY Discharge Date Discharge Date: 02/27/24 Discharge Diagnosis All Active Problems (Updated 02/27/24 @ 15:04 by Raymundo Shields) Atherosclerosis of [place] arteries of extremities with rest pain, left leg (Acute) Atherosclerosis of [place] arteries of extremities with rest pain, right leg (Acute) Anemia, chronic disease (Chronic) Hypomagnesemia (Acute) Hyponatremia (Acute) PAD (peripheral artery disease) (Chronic) Essential (primary) hypertension (Chronic) Plan of Treatment: Continue with present treatment and follow up plan. Pt is to keep follow up appointment as instructed and take medications as ordered. Discharge Medications Discharge Medications: No Known Allergies Allergy (Verified 02/24/24 07:33) CONTINUE taking the following medications atorvastatin 40 mg tablet 20 mg PO QDAY 02/24/24 [History] gabapentin 600 mg tablet 600 mg PO QID 02/24/24 [History] hydrochlorothiazide 12.5 mg tablet 12.5 mg PO QDAY 02/24/24 [History] hydrocodone 10 mg-acetaminophen 325 mg tablet 1 tab PO Q4H PRN Pain 02/24/24 [History] pantoprazole 40 mg tablet,delayed release 40 mg PO BID 02/24/24 [History] potassium chloride 20 mEq tablet,extended release 20 meq PO QDAY 02/24/24 [History] tamsulosin 0.4 mg capsule 0.4 mg PO QDAY 02/24/24 [History] trazodone 100 mg tablet 100 mg PO QPM 02/24/24 [History] Norvasc 10 mg po qhs Sipronalactone 25 mg po daily Discharge Disposition Assessment: see hospital course Discharge Plan Discharge Plan Hospital Course: This is a 69 year old male with significant peripheral vascular disease known to have complete occlusion of the right common jah artery and complete occlusion of the right superficial femoral artery. He required a hybrid procedure of attempted stenting of the right common iliac artery after right common femoral endarterectomy and Patch angioplasty for his common femoral occlusion but I could not a wire across the right iliac artery occlusion into the [place] aorta . Therefore he underwent a femoral femoral bypass and stenting of the right superficial femoral artery. He has done well in that regard with excellent biphasic doppler signals in both the anterior tibial and posrterior tibial arteries. Post procedure he did have some bleeding from his groin incisions and did require 2 units of packed red blood cells. A t time of discharge his hemoglobin is 8.3 grams. He also had some hypertension despite his usual home medication and was seen in consultation by Dr Ballard who added a regimen of spironolactone and Norvasc to his current blood pressure medications. He will be discharged home with this time. Encourage ambulation. He may shower and get the wounds in the groins damp but pat them dry dry. He will follow up with me in 1 week. At that time we will consider removing sameer in each groin incision and he will need to be scheduled for intervention of the left superficial artery occlusion. Patient Disposition: 01 HOME, SELF-CARE Condition: Stable Health Concerns: Post Hospitalization: new medications and changes needed to prevent readmission or further decline. Pt educated and given instructions on all concerns. Care Plan Goals: Problem: Pain/Alteration in Comfort Goal: Improve/ Resolve Pain; Achieve Pain Tolerance Instructions: Take pain medications as prescribed. Contact your primary care provider if your pain is unrelieved or worsens. Follow up with primary care provider as directed. Plan of Treatment: Continue with present treatment and follow up plan. Pt is to keep follow up appointment as instructed and take medications as ordered. Assessment: see hospital course Prescriptions: New aspirin 81 mg Tablet,Delayed Release (Dr/Ec) 81 mg PO DAILY Qty: 120 6RF spironolactone 25 mg Tablet 25 mg PO DAILY Qty: 90 0RF amlodipine 10 mg Tablet 10 mg PO HS Qty: 90 3RF oxycodone-acetaminophen [Percocet] 5-325 mg tablet 1 tab PO Q6H MDD 4 PRNQty: 30 0RF Continued atorvastatin 40 mg Tablet 20 mg PO QDAY gabapentin 600 mg Tablet 600 mg PO QID tamsulosin 0.4 mg Capsule 0.4 mg PO QDAY trazodone 100 mg tablet 100 mg PO QPM pantoprazole 40 mg Tablet,Delayed Release (Dr/Ec) 40 mg PO BID hydrochlorothiazide 12.5 mg tablet 12.5 mg PO QDAY potassium chloride 20 mEq Tablet Extended Release 20 meq PO QDAY Discontinued amoxicillin 500 mg capsule 500 mg PO TID hydrocodone-acetaminophen 10-325 mg tablet 1 tab PO Q4H PRN (Reason: Pain) Follow ups/Referrals Follow ups/Referrals: FARA GALDAMEZ [Primary Care Provider] - (Follow up as needed.) Raymundo Shields [STAFF PHYSICIAN] - 1 WEEK Instructions Instructions: Endovascular Therapy for Peripheral Vascular Disease: What to Know After, Carotid Endarterectomy, Care After, Pain Medicine Instructions, [id number] Stand Alone Forms: Post Hospital Follow Up Care
[2024-02-27 15:19] VITALS: BP 116/57; O2SAT 100
[2024-02-27 15:38] VITALS: PULSE 77; RESP 27
== END 2024-02-27 16:56 | disposition home or self-care (01) | DRG 253 ==
LOC: ICU 06:15
PROVIDERS: ADMIT Surgery; ATTEND Surgery
DX: I10 Essential (primary) hypertension; E78.5 Hyperlipidemia, unspecified; I70.221 Atherosclerosis of native arteries of extremities with rest pain, right leg; I73.89 Other specified peripheral vascular diseases; E87.1 Hypo-osmolality and hyponatremia; D63.8 Anemia in other chronic diseases classified elsewhere; E83.42 Hypomagnesemia; I87.2 Venous insufficiency (chronic) (peripheral)

== ENCOUNTER 2024-12-19 08:21 | Observation (INO) ==
[2024-12-19] MEDS: REGLAN INJ 10 MG VIAL ONE (09:08)
[2024-12-19] MEDS: ZOFRAN INJ 4 MG VIAL ONE (09:08)
[2024-12-19] MEDS: DECADRON INJ ONE (09:08)
[2024-12-19] MEDS: VERSED ONE (09:24)
[2024-12-19] MEDS: FENTANYL VIAL INJ 100 mcg ONE (09:24)
--- NOTE | 2024-12-19 09:28 | EKG ---
Test Reason : pre op Blood Pressure : */* mmHG Vent. Rate : 54 BPM Atrial Rate : 54 BPM P-R Int : 170 ms QRS Dur : 88 ms QT Int : 438 ms P-R-T Axes : 76 63 63 degrees QTc Int : 415 ms Sinus bradycardia Otherwise normal ECG When compared with ECG of 02-MAR-2024 13:10, Criteria for Septal infarct are no longer present Confirmed by Alen Medina MD ([id number]) on 12/20/2024 5:59:44 AM Referred By: Confirmed By: Alen Medina MD
[2024-12-19 09:31] LABS: MEAN PLATELET VOLUME 9.4 fL (7.4-11.0); RED CELL DISTRIBUTION WIDTH 14.5 % (11.6-16.5)
[2024-12-19] MEDS: LR 1,000 ML IV 1,000 ML IV ONE (09:37)
--- NOTE | 2024-12-19 09:40 | RAD ---
EXAMINATION: CHEST, 1 VIEW HISTORY: pre op vas sx; . COMPARISON STUDY: 02/24/2024 TECHNIQUE: A single view of the chest was obtained. FINDINGS: Previous median sternotomy. Heart size is normal. No acute infiltrates. There is no pneumothorax. Hilar and mediastinal structures and bony structures are unremarkable. . IMPRESSION: No acute process in the chest. THIS IS AN ELECTRONICALLY VERIFIED FINAL REPORT 12/19/2024 9:35 AM - Electronically signed by Abilio Hermosillo MD
[2024-12-19 09:52] LABS: CREATININE 1.19 mg/dL (0.70-1.30); eGFR NON BLACK RACES > 60 (>60)
[2024-12-19] MEDS: REGLAN INJ 10 MG VIAL IVP PRN (10:00)
[2024-12-19] MEDS: ZOFRAN INJ 4 MG VIAL IVP PRN (10:00)
[2024-12-19] MEDS: PEPCID 20 MG VIAL IVP PRN (10:00)
[2024-12-19] MEDS: LR 1,000 ML IV 900 ML IV PRN (10:00)
[2024-12-19] MEDS: PEPCID 20 MG VIAL ONE (10:01)
[2024-12-19] MEDS: OFIRMEV IV 1000 MG VIAL 1,000 MG/100 ML VIAL IV ONE (10:04)
[2024-12-19] MEDS: ANCEF VIAL 1 GRAM IV PRN (10:10)
[2024-12-19] MEDS: NS 100 ML IV 100 ML ONE (10:13)
[2024-12-19] MEDS: ANCEF VIAL 1 GRAM ONE (10:13)
[2024-12-19] MEDS: VERSED IVP PRN (10:16)
[2024-12-19] MEDS: FENTANYL VIAL INJ 100 mcg IVP PRN (10:22)
[2024-12-19] MEDS ORDERED: XYLOCAINE 2 % (PLAIN) PRN (10:23)
[2024-12-19] MEDS: DIPRIVAN VIAL 140 ML IVP PRN (10:23)
[2024-12-19] MEDS: EPHEDRINE SULFATE INJ ONE (10:25)
[2024-12-19] MEDS: EPHEDRINE SULFATE INJ IVP PRN (10:33)
[2024-12-19] MEDS: NEO-SYNEPHRINE INJ ONE ×2 (10:34)
[2024-12-19] MEDS: HEPARIN 1,000 UNIT/500 ML-NS 3,000 UNIT/1,500 ML IV.SOLN ONE (10:43)
[2024-12-19] MEDS: MARCAINE 0.5% ONE (10:43)
[2024-12-19] MEDS ORDERED: ULTANE GAS IN ONE (10:45)
[2024-12-19] MEDS ORDERED: XYLOCAINE 2 % (PLAIN) ONE (10:45)
[2024-12-19] MEDS: HEPARIN SODIUM INJ 5000 UNITS ONE ×2 (10:46→11:42)
[2024-12-19] MEDS: NEO-SYNEPHRINE INJ IVP PRN (10:55)
[2024-12-19] MEDS ORDERED: BARHEMSYS INJ IVP PRN (10:56)
[2024-12-19] MEDS ORDERED: ZOFRAN INJ 4 MG VIAL IVP PRN (10:56)
[2024-12-19] MEDS ORDERED: BENADRYL INJ 50 MG VIAL IVP PRN (10:56)
[2024-12-19] MEDS: OFIRMEV IV 1000 MG VIAL 1,000 MG/100 ML VIAL IV PRN (10:58)
[2024-12-19] MEDS ORDERED: HEPARIN SODIUM INJ 5000 UNITS IVP PRN (11:46)
[2024-12-19] MEDS ORDERED: KETAMINE HCL ONE (12:05)
[2024-12-19] MEDS ORDERED: SUPRANE IN ONE (12:05)
--- NOTE | 2024-12-19 12:48 | OR.IMMED ---
IMMEDIATE POST-OP NOTE Immediate Post-Op Note Date of surgery/procedure: 12/19/24 Pre-Op Diagnosis: Critical ischemia left leg with left occluded superficial femoral artery Post-Op Diagnosis: Occluded left superficial femoral artery along its length with severe disease of the tibioperoneal trunk, patent left iliac stent, occluded femoral-femoral bypass graft from left to right. Unable to explore or assess the right leg previous intervention most likely it is occluded as well as the patient has no inflow from the femorofemoral graft. Procedure: Aortogram, arteriogram of the left leg, attempt at crossing the occluded superficial artery back into the [place] vessel near the common femoral artery unsuccessful spite multiple attempts from above and below. Balloon angioplasty of the common femoral artery and attempt to get back in the lumen. Unsuccessful Description of Procedure: dictated Surgeon/Dump Operator: Cornelius Findings: as above Estimated Blood Loss: <100cc Complications: none Progress Notes: Patient to be admitted for observation. Unable to reestablish flow of the left leg now with occluded femoral-femoral graft and probably occluded right lower extremity as well. Will admit for observation and plan open procedure starting from the left groin to perform thrombectomy of the femoral graft and reestablish flow to the left leg. Patient may need flow reestablished to the right leg as well hopefully through the same incision of left groin but may need another incision in the right groin as well.
[2024-12-19] MEDS: DILAUDID INJ ONE (13:08)
[2024-12-19] MEDS: DILAUDID INJ IVP PRN (13:10)
[2024-12-19] MEDS: PERCOCET TAB 5/325 MG PO PRN (13:36)
[2024-12-19] MEDS: NEURONTIN TAB 600 MG PO SCH (13:39)
[2024-12-19] MEDS: NS 1,000 ML IV 1,000 ML ONE (13:39)
[2024-12-19] MEDS: LR 1,000 ML IV 1,000 ML IV SCH (13:40)
[2024-12-19 14:34] VITALS: BMI 22.3
[2024-12-19] MEDS: CATAPRES TAB 0.1 MG PO ONE (14:41)
[2024-12-19] MEDS: APRESOLINE INJ 20 MG VIAL IVP ONE (15:26)
[2024-12-19] MEDS: DESYREL PO SCH (21:16)
[2024-12-19] MEDS: LOVENOX INJ 80 MG SYR SC SCH (21:17)
[2024-12-20 05:00] LABS: MEAN PLATELET VOLUME 10.1 fL (7.4-11.0); RED CELL DISTRIBUTION WIDTH 14.5 % (11.6-16.5)
[2024-12-20 05:04] LABS: CREATININE 0.90 mg/dL (0.70-1.30); eGFR NON BLACK RACES > 60 (>60)
[2024-12-20] MEDS: FLOMAX PO SCH (09:33)
[2024-12-20] MEDS: LIPITOR TAB 20 MG PO SCH (09:33)
[2024-12-20] MEDS: PROTONIX TAB 40 MG PO SCH (09:33)
[2024-12-20] MEDS: ZESTORETIC 20/25 MG PO SCH (09:33)
[2024-12-20] MEDS: ASPIRIN EC 81 MG PO SCH (09:34)
[2024-12-20] MEDS: PLAVIX PO SCH (09:34)
--- NOTE | 2024-12-20 12:49 | DR.OPNOTE ---
OP NOTE Pre-Op Diagnosis: Critical ischemia left leg Post-Op Diagnosis: Same, see findings below Procedure Date Date Of Procedure: 12/19/24 Procedure: PROCEDURE: Diagnostic aortogram, diagnostic arteriogram left leg, angioplasty left proximal superficial femoral artery NARRATIVE: The patient was taken to the operative suite and placed in the supine position. The right groin and entire left leg and lower abdomen were prepped and draped in sterile fashion. Patient was given intravenous sedation supervised by myself. Timeout for the procedure obtained. Ultrasound used to study the midportion of the femorofemoral graft but this graft was now occluded. This is a new finding as the patient originally had the femoral-femoral bypass graft placed almost 10 months ago and at that time had arterial invention of the right leg, primarily with atherectomy and stenting of the right superficial femoral artery along its length. We are here to deal with the left leg. Patient has had previous left iliac artery stenting prior to the femoral-femoral bypass. Since the femoropopliteal bypass was occluded we elected to go antegrade from the ankle. The left posterior tibial artery identified at the ankle with ultrasound and the skin overlying it infiltrated with 0.5 % Marcaine and a 18-gauge needle used to puncture the posterior artery and a 0.012 inch guidewire placed. Incision made over the guidewire with a number 11knife blade and a micro sheath placed over the guidewire into the posterior tibial artery. Arteriogram showed we were indeed in the posterior tibial artery. There appeared to be good flow the posterior with tibial artery all the way to the ankle with reconstitution of the peroneal artery. Patient had evidence of having disease of the tibioperoneal trunk near complete occlusion and complete occlusion of the superficial femoral artery at the adductor canal and along its entire length. Over this wire we placed a 4 to 7 [place] sheath and used a [place] catheter and 0.035 inch wire and a 0.018 wire to try to get across occlusion of the superficial femoral artery back into the [place] vessel in the iliac artery but were unsuccessful. Therefore from the left arm we prepped and draped the left brachial artery and identified it above the antecubital fossa with ultrasound and used ultrasound-guided puncture of this with with a needle and a 0.12 inch guidewire placed. Incision made over the guidewire and a micro sheath was placed over the guidewire into the brachial artery. A 0.035 inch wire was placed and the micro sheath exchanged for a 6 [place] vascular sheath. Under direct vision the guidewire was guided down the aorta to the distal aorta and arteriogram carried out of the aorta showing the left iliac stents to be patent. 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 From above and below we placed the wires and approached the takeoff of the superficial femoral artery but could not enter the lumen. We ballooned this in the femoral artery area try to get back into the lumen but were unsuccessful. Also , I could not tell exactly where the femoral-femoral graft came in. Therefore the patient will require open procedure with planned exploration of th e left groin with declotting of the femoral-femoral graft, atherectomy and probable stenting of the left superficial femoral artery and possible intervention of the right leg. That will be done at a later time. The sheath in the left brachial artery was removed and a tibial band used to control hemostasis. Patient given 5000 units of IV heparin to begin the case and had been given additional 3000 units at 1 hour. There was no reversal given. The sheath in the posterior tibial artery was left in place and the patient will be given therapeutic doses of Lovenox as well as infusion of normal saline through this sheath. We will need this sheath access for intervention of the left leg in the future . Patient tolerated all this very well was taken to the floor in good condition. Type of Anesthesia: Local (0.5% Marcaine) Anesthesia Comment: plus MAC Findings: Completely occluded left superficial femoral artery, severe disease of the left tibioperoneal trunk, patent left iliac artery stent, occluded femoral- femoral bypass. Unable to explore assess right leg previous intervention from the left side but most likely it is occluded as well. Type of Fluids Used:: Lactated Ringers Total Amount of Fluid Infused:: 900cc Urine output: 100cc EBL: < 50 cc Complications:: none Needle/Sponge Count:: correct Disposition/Condition: Pt. tolerated procedure without difficulty. Extubated in the OR and taken to PACU in stable condition.
--- NOTE | 2024-12-20 23:37 | NOTE.SOAP ---
Soap Note Note for Day of Date of Exam: 12/20/24 Subjective Data Subjective Data: Unable to perform revascularization of the left leg as I cannot get a wire across the superficial femoral artery occlusion back into the lumen of the iliac artery. Also the femoral-femoral bypass from left to right is occluded. I am unsure as to the degree of possible occlusion of the right leg which has previously been done over 10 months ago. Plan for open intervention of the left groin tomorrow with declotting of the femoral-femoral graft and peripheral based arterial intervention of the left leg. May require right leg intervention as well. Objective Data Temperature: 98.0 F Pulse Rate: 84 Respiratory Rate: 19 Blood Pressure: 114/56 O2 Sat by Pulse Oximetry: 100 Objective Data: Cool feet bilaterally. No pulse in the femoral-femoral graft. Hemoglobin equals 9.4 g. Creatinine equals 0.90 Assessment Assessment: Critical ischemia of the left leg with occluded femoral-femoral bypass graft from left to right. Possible significant ischemia right leg as well. Plan Plan: Will plan open exploration through the left groin tomorrow with thrombectomy of the femoral-femoral graft. Endarterectomy and patch angioplasty of the leftb common femoral artery and possible peripheral based arterial intervention of the left leg. Risk and benefits discussed with the patient and he agrees to proceed.
[2024-12-21 05:55] LABS: MEAN PLATELET VOLUME 9.7 fL (7.4-11.0); RED CELL DISTRIBUTION WIDTH 14.5 % (11.6-16.5)
[2024-12-21] MEDS: HIBICLENS WASH EXT ONE (06:01)
[2024-12-21 06:12] LABS: COR CA(FOR HYPOALB) 9.3 mg/dL (8.5-10.1); CREATININE 1.00 mg/dL (0.70-1.30); eGFR NON BLACK RACES > 60 (>60)
[2024-12-21] MEDS: VERSED ONE (11:38)
[2024-12-21] MEDS: DIPRIVAN VIAL 20 ML ONE (11:38)
[2024-12-21] MEDS: FENTANYL VIAL INJ 100 mcg ONE (11:38)
[2024-12-21] MEDS: NS 100 ML IV 100 ML ONE (12:29)
[2024-12-21] MEDS: ANCEF VIAL 1 GRAM ONE (12:29)
[2024-12-21] MEDS: ANCEF VIAL 1 GRAM IV PRN (12:35)
[2024-12-21] MEDS: LR IV PRN (12:35)
[2024-12-21] MEDS: VERSED IVP PRN (12:37)
[2024-12-21] MEDS: PEPCID 20 MG VIAL IVP PRN (12:38)
[2024-12-21] MEDS: ZOFRAN INJ 4 MG VIAL IVP PRN (12:38)
[2024-12-21] MEDS ORDERED: XYLOCAINE 2 % (PLAIN) PRN (12:42)
[2024-12-21] MEDS: ROBINUL IVP PRN (12:42)
[2024-12-21] MEDS: DIPRIVAN VIAL 150 ML IVP PRN (12:42)
[2024-12-21] MEDS: ROBINUL ONE (12:50)
[2024-12-21] MEDS: NEO-SYNEPHRINE INJ ONE (12:57)
[2024-12-21] MEDS: NS 1,000 ML IV 350 ML IV PRN (12:58)
[2024-12-21] MEDS: NS 500 ML IV 500 ML IV ONE (12:58)
[2024-12-21] MEDS: MARCAINE 0.5% ONE (12:59)
[2024-12-21] MEDS: HEPARIN 1,000 UNIT/500 ML-NS 3,000 UNIT/1,500 ML IV.SOLN ONE (12:59)
[2024-12-21] MEDS: PEPCID 20 MG VIAL ONE (13:01)
[2024-12-21] MEDS: NEO-SYNEPHRINE INJ IVP PRN (13:04)
[2024-12-21] MEDS: HEPARIN SODIUM INJ 5000 UNITS ONE ×3 (13:23→15:23)
[2024-12-21] MEDS: OFIRMEV IV 1000 MG VIAL 1,000 MG/100 ML VIAL IV ONE (13:23)
[2024-12-21] MEDS: VISIPAQUE 100 ML ONE (13:36)
[2024-12-21] MEDS: VISIPAQUE ONE (13:36)
[2024-12-21] MEDS: LR 1,000 ML IV 1,000 ML IV ONE (13:43)
[2024-12-21] MEDS: OFIRMEV IV 1000 MG VIAL 1,000 MG/100 ML VIAL IV PRN (14:15)
[2024-12-21] MEDS: KETAMINE HCL IV PRN (14:32)
[2024-12-21] MEDS: FENTANYL VIAL INJ 100 mcg IVP PRN (14:33)
[2024-12-21] MEDS ORDERED: DILAUDID INJ IVP PRN (14:57)
[2024-12-21] MEDS ORDERED: BARHEMSYS INJ IVP PRN (14:57)
[2024-12-21] MEDS ORDERED: REGLAN INJ 10 MG VIAL IVP PRN (14:57)
[2024-12-21] MEDS ORDERED: BENADRYL INJ 50 MG VIAL IVP PRN (14:57)
[2024-12-21] MEDS ORDERED: ZOFRAN INJ 4 MG VIAL IVP PRN (14:57)
[2024-12-21] MEDS ORDERED: HEPARIN SODIUM INJ 5000 UNITS IVP PRN (15:23)
[2024-12-21] MEDS: PROTAMINE SULFATE 50 MG VIAL IVP PRN (15:51)
[2024-12-21] MEDS: PROTAMINE SULFATE 50 MG VIAL ONE (15:51)
[2024-12-21] MEDS: DILAUDID INJ ONE (16:00)
[2024-12-21] MEDS: DILAUDID INJ IVP PRN (16:16)
--- NOTE | 2024-12-21 16:51 | OR.IMMED ---
IMMEDIATE POST-OP NOTE Immediate Post-Op Note Date of surgery/procedure: 12/21/24 Pre-Op Diagnosis: Critical ischemia left leg with complete occlusion of left superficial femoral and popliteal arteries and occluded femoral-femoral bypass graft PROCEDURE : left common femoral endarterectomy, patch angioplasty, thrombectomy of fem- fem graft , reanastomosis of fem - fem graft onto patch of left common femoral artery , arteriogram left leg , arteriogram right leg , stenting entire left superficial femoral and popliteal arteries Procedure: see above Description of Procedure: dictated Surgeon/Etl Informatica Developer: Shadi Shields MD, FACS Findings: Completely occluded femoral-femoral graft created for right iliac artery occlusion, complete occlusion of the left common femoral artery left superficial femoral artery and left popliteal artery with runoff via the posterior tibial and peroneal arteries. Patient has evidence of thrombus down the right superficial femoral artery previously placed stents. This will need to be addressed at a later time as the leg is not in jeopardy at this time Estimated Blood Loss: 250 cc Complications: none Progress Notes: To PACU then to the floor. Will obtain CBC in a couple hours and in the morning. Continue therapeutic Lovenox ,aspirin and Plavix
[2024-12-21 20:05] LABS: MEAN PLATELET VOLUME 9.8 fL (7.4-11.0); RED CELL DISTRIBUTION WIDTH 14.6 % (11.6-16.5)
[2024-12-21] MEDS: FLOMAX PO SCH (20:29)
[2024-12-22 05:48] LABS: MEAN PLATELET VOLUME 10.0 fL (7.4-11.0); RED CELL DISTRIBUTION WIDTH 14.5 % (11.6-16.5)
[2024-12-22 05:58] LABS: CREATININE 0.80 mg/dL (0.70-1.30); eGFR NON BLACK RACES > 60 (>60)
[2024-12-22] MEDS: COLACE CAP 100 MG PO PRN (08:46)
[2024-12-22] MEDS: MILK OF MAGNESIA PO PRN (22:33)
[2024-12-23] MEDS ORDERED: ZOFRAN INJ 4 MG VIAL ONE (00:13)
[2024-12-23] MEDS: ZOFRAN INJ 4 MG VIAL IVP PRN (00:17)
[2024-12-23] MEDS ORDERED: CONSULT PHARMACY - POTASSIUM & MAGNESIUM XX SCH (08:00)
[2024-12-23] MEDS: MAG-OX TAB PO SCH (08:39)
--- NOTE | 2024-12-23 11:17 | W.DIS.FURT ---
Summary of Discharge Discharge Summary of Date Date of Exam: 12/23/24 Admission Date Date of Admission: 12/19/24 Admission Diagnosis Hospital Course: This is a 69-year-old male who approximatly 10 months ago had undergone a femoral-femoral bypass for a right occluded iliac artery and at that time underwent stenting of the right superficial femoral artery. He had done well initially and was supposed to see me back in a couple weeks to perform intervention of the left leg for completely occluded left superficial femoral artery. Unfortunately , he had an illness in the family and it has been 10 months. We planned to perform intervention of the left leg on 19 December , At that time however he had complete occlusion of the left superficial femoral artery and also the femoral-femoral graft was now occluded occluded. I could no t get a wire across superficial femoral artery either from above or below. There appeared to be a dense plaque at the common femoral artery where the femoral-femoral graft was anastomosed to the common femoral artery. Therefore we elected to come back another day for open- hybrid procedure. He was brought back to the operating room on 21 December where he underwent left femoral endarterectomy, patch angioplasty, thrombectomy of the femoral-femoral graft with hybrid approach from the posterior tibial artery ankle and stenting of the left superficial femoral artery. He has done well and he and has excellent Doppler signals at the ankle on the left side. He also has good Doppler signal in the femoral-femoral graft. The right superficial artery stents are now occluded . He does however have good runoff on the right side through a large profunda artery. I will address the occluded right superficial femoral artery stent at a later time. After the first procedure he had a drop in his hem oglobin secondary to hematoma in the left arm from a needlestick. He did receive 1 unit of packed red blood cells. Hemoglobin at time of discharge is 8.2 g. and is stablre . He will be discharged home on his usual home medications with the inclusion of aspirin 81 mg daily as well as Xarelto 2.5 mg twice daily. He will follow-up in 1 week at that time we will plan intervention of the right leg. Vital Signs: Vital Signs (72 hours) 12/20/24 12:00 12/20/24 16:00 12/20/24 16:59 Temperature 98.4 F 98.2 F Pulse Rate Pulse Rate [Left Radial] 81 85 Respiratory Rate 19 20 18 Blood Pressure Blood Pressure [Left Arm] 118/58 125/64 O2 Sat by Pulse Oximetry 100 98 Oxygen Delivery Method Room Air Room Air 12/20/24 19:00 12/20/24 19:29 12/20/24 20:00 Temperature 98.0 F Pulse Rate 78 Pulse Rate [Left Radial] 84 Respiratory Rate 19 Blood Pressure Blood Pressure [Left Arm] 114/56 O2 Sat by Pulse Oximetry 99 100 Oxygen Delivery Method Room Air Room Air 12/20/24 23:37 12/20/24 23:58 12/21/24 00:16 Temperature 98.0 F 97.6 F Pulse Rate 84 Pulse Rate [Left Radial] 83 Respiratory Rate 19 19 19 Blood Pressure 114/56 Blood Pressure [Left Arm] 136/65 O2 Sat by Pulse Oximetry 100 100 Oxygen Delivery Method Room Air 12/21/24 01:16 12/21/24 04:00 12/21/24 04:12 Temperature 98.8 F Pulse Rate Pulse Rate [Left Radial] 93 H Respiratory Rate 18 18 18 Blood Pressure Blood Pressure [Left Arm] 142/64 O2 Sat by Pulse Oximetry 96 Oxygen Delivery Method Room Air 12/21/24 05:12 12/21/24 07:00 12/21/24 07:48 Temperature 98.2 F Pulse Rate Pulse Rate [Left Radial] 80 Respiratory Rate 18 19 Blood Pressure Blood Pressure [Left Arm] 129/60 O2 Sat by Pulse Oximetry 100 Oxygen Delivery Method Room Air Room Air 12/21/24 08:36 12/21/24 12:16 12/21/24 16:14 Temperature 97.9 F 97.5 F L Pulse Rate 84 110 H Pulse Rate [Left Radial] Respiratory Rate 18 20 Blood Pressure 136/73 128/64 Blood Pressure [Left Arm] O2 Sat by Pulse Oximetry 97 98 Oxygen Delivery Method Room Air Room Air Aerosol Face Tent 12/21/24 16:19 12/21/24 16:24 12/21/24 16:29 Temperature Pulse Rate 108 H 110 H 101 H Pulse Rate [Left Radial] Respiratory Rate 20 18 18 Blood Pressure 135/65 128/59 128/59 Blood Pressure [Left Arm] O2 Sat by Pulse Oximetry 96 95 94 L Oxygen Delivery Method Aerosol Face Tent Room Air Room Air 12/21/24 16:34 12/21/24 16:39 12/21/24 16:44 Temperature 97.7 F Pulse Rate 101 H 95 H 96 H Pulse Rate [Left Radial] Respiratory Rate 18 18 18 Blood Pressure 133/61 127/55 142/65 Blood Pressure [Left Arm] O2 Sat by Pulse Oximetry 94 L 94 L 95 Oxygen Delivery Method Room Air Room Air Room Air 12/21/24 16:50 12/21/24 17:05 12/21/24 17:20 Temperature 97.8 F 97.8 F 97.9 F Pulse Rate Pulse Rate [Left Radial] 92 H 84 75 Respiratory Rate 18 16 18 Blood Pressure Blood Pressure [Left Arm] 124/60 135/63 132/62 O2 Sat by Pulse Oximetry 97 96 97 Oxygen Delivery Method 12/21/24 17:35 12/21/24 17:50 12/21/24 18:50 Temperature 97.9 F 98.0 F 98.0 F Pulse Rate Pulse Rate [Left Radial] 75 76 76 Respiratory Rate 17 18 19 Blood Pressure Blood Pressure [Left Arm] 132/60 154/72 153/71 O2 Sat by Pulse Oximetry 97 100 100 Oxygen Delivery Method 12/21/24 19:00 12/21/24 19:50 12/21/24 20:50 Temperature 97.8 F 98.4 F Pulse Rate Pulse Rate [Left Radial] 62 87 Respiratory Rate 18 19 Blood Pressure Blood Pressure [Left Arm] 157/73 161/73 O2 Sat by Pulse Oximetry 97 97 Oxygen Delivery Method Room Air 12/21/24 21:50 12/21/24 23:58 12/22/24 00:00 Temperature 98.2 F 98.0 F Pulse Rate Pulse Rate [Left Radial] 75 89 Respiratory Rate 21 18 20 Blood Pressure Blood Pressure [Left Arm] 161/72 117/54 O2 Sat by Pulse Oximetry 100 97 Oxygen Delivery Method Room Air 12/22/24 00:58 12/22/24 04:00 12/22/24 06:02 Temperature 98.1 F Pulse Rate Pulse Rate [Left Radial] 101 H Respiratory Rate 18 19 19 Blood Pressure Blood Pressure [Left Arm] 109/56 O2 Sat by Pulse Oximetry 100 Oxygen Delivery Method Room Air 12/22/24 07:00 12/22/24 07:02 12/22/24 07:42 Temperature 98.7 F Pulse Rate Pulse Rate [Left Radial] 99 H Respiratory Rate 18 18 Blood Pressure Blood Pressure [Left Arm] 110/55 O2 Sat by Pulse Oximetry 100 Oxygen Delivery Method Room Air Room Air 12/22/24 12:00 12/22/24 13:30 12/22/24 14:30 Temperature 98.2 F Pulse Rate Pulse Rate [Left Radial] 99 H Respiratory Rate 16 16 18 Blood Pressure Blood Pressure [Left Arm] 138/62 O2 Sat by Pulse Oximetry 92 L Oxygen Delivery Method Room Air 12/22/24 15:33 12/22/24 19:00 12/22/24 20:00 Temperature 99.1 F 100.7 F H Pulse Rate Pulse Rate [Left Radial] 98 H 118 H Respiratory Rate 18 19 Blood Pressure Blood Pressure [Left Arm] 130/61 112/60 O2 Sat by Pulse Oximetry 98 97 Oxygen Delivery Method Room Air Room Air Room Air 12/22/24 20:30 12/22/24 21:32 12/22/24 22:15 Temperature 98.5 F Pulse Rate Pulse Rate [Left Radial] 104 H Respiratory Rate 18 Blood Pressure Blood Pressure [Left Arm] O2 Sat by Pulse Oximetry Oxygen Delivery Method Room Air 12/22/24 22:32 12/23/24 00:00 12/23/24 04:00 Temperature 98.7 F 98.4 F Pulse Rate Pulse Rate [Left Radial] 104 H 107 H Respiratory Rate 18 19 20 Blood Pressure Blood Pressure [Left Arm] 130/68 156/69 O2 Sat by Pulse Oximetry 96 99 Oxygen Delivery Method Room Air Room Air 12/23/24 07:00 12/23/24 08:00 Temperature 98.2 F Pulse Rate Pulse Rate [Left Radial] 102 H Respiratory Rate 17 Blood Pressure Blood Pressure [Left Arm] 132/62 O2 Sat by Pulse Oximetry 99 Oxygen Delivery Method Room Air Room Air Labs: Laboratory Last Values WBC 10.9 X10^3/uL (3.6-10.0) H 12/22/24 05:20 RBC 2.69 X10^6/uL (4.7-6.0) L 12/22/24 05:20 Hgb 8.2 g/dL (13.5-18.0) L 12/22/24 05:20 Hct 23.9 % (42.0-54.0) L 12/22/24 05:20 MCV 88.9 fL (80.0-100.0) 12/22/24 05:20 MCH 30.7 pg (27.0-34.0) 12/22/24 05:20 MCHC 34.5 g/dL (33.0-35.0) 12/22/24 05:20 RDW 14.5 % (11.6-16.5) 12/22/24 05:20 Plt Count 189 X10^3/uL (150.0-450.0) 12/22/24 05:20 MPV 10.0 fL (7.4-11.0) 12/22/24 05:20 Neut % (Auto) 79.2 % (42.0-75.0) H 12/22/24 05:20 Lymph % (Auto) 12.8 % (21.0-51.0) L 12/22/24 05:20 [place] % (Auto) 7.3 % (0.0-13.0) 12/22/24 05:20 Eos % (Auto) 0.3 % (0.9-2.9) L 12/22/24 05:20 Baso % (Auto) 0.4 % (0.2-1.0) 12/22/24 05:20 Neut # (Auto) 8.6 x10^3/uL (2.2-4.8) H 12/22/24 05:20 Lymph # (Auto) 1.4 X10^3/uL (1.3-2.9) 12/22/24 05:20 [place] # (Auto) 0.8 x10^3/uL (0.3-0.8) 12/22/24 05:20 Eos # (Auto) 0.0 x10^3/uL (0.0-0.2) 12/22/24 05:20 Baso # (Auto) 0.0 X10^3/uL (0.0-0.1) 12/22/24 05:20 Absolute Nucleated RBC 0.0 /100WBC 12/22/24 05:20 Sodium 135 mmol/L (136-145) L 12/22/24 05:20 Corrected Sodium TNP 12/22/24 05:20 Potassium 3.7 mmol/L (3.5-5.1) 12/22/24 05:20 Chloride 102 mmol/L (98-107) 12/22/24 05:20 Carbon Dioxide 27.2 mmol/L (21-32) 12/22/24 05:20 BUN 10 mg/dL (7-18) 12/22/24 05:20 Creatinine 0.80 mg/dL (0.70-1.30) 12/22/24 05:20 Est GFR (MDRD) Af Amer > 60 (>60) 12/22/24 05:20 Est GFR (MDRD) Non-Af > 60 (>60) 12/22/24 05:20 Glucose 106 mg/dL (65-99) H 12/22/24 05:20 Calcium 8.0 mg/dL (8.5-10.1) L 12/22/24 05:20 Corrected Calcium 9.3 mg/dL (8.5-10.1) 12/21/24 05:18 Magnesium 1.7 mg/dL (2.0-2.9) L 12/23/24 07:15 Total Bilirubin 0.30 mg/dL (0.2-1.0) 12/21/24 05:18 AST 17 Units/L (15-37) 12/21/24 05:18 ALT 20 Units/L (12-78) 12/21/24 05:18 Alkaline Phosphatase 88 Units/L (46-116) 12/21/24 05:18 Total Protein 6.0 g/dL (6.4-8.2) L 12/21/24 05:18 Albumin 2.8 g/dL (3.4-5.0) L 12/21/24 05:18 Globulin 3.2 g/dL (2.5-4.5) 12/21/24 05:18 Albumin/Globulin Ratio 0.9 Ratio (1.1-2.1) L 12/21/24 05:18 Blood Type O POSITIVE 12/21/24 07:50 Antibody Screen Negative 12/21/24 07:50 Crossmatch See Detail 12/21/24 07:50 Reason For Visit: ISCHEMIC LEFT LEG Discharge Date Discharge Date: 12/23/24 Discharge Diagnosis All Active Problems (Updated 03/02/24 @ 20:02 by Lacie Birmingham) Acute constipation (Acute) Atherosclerosis of [place] arteries of extremities with rest pain, left leg (Acute) Atherosclerosis of [place] arteries of extremities with rest pain, right leg (Acute) Anemia, chronic disease (Chronic) Hypomagnesemia (Acute) Hyponatremia (Acute) PAD (peripheral artery disease) (Chronic) Essential (primary) hypertension (Chronic) Plan of Treatment: Continue with present treatment and follow up plan. Pt is to keep follow up appointment as instructed and take medications as ordered. Discharge Medications Discharge Medications: No Known Allergies Allergy (Verified 03/02/24 13:30 all home medications Percocet 1 po q 6 hr PRN pain , #30 Xarelto 2.5 mg po BID) Discharge Disposition Assessment: see hospital course Discharge Plan Discharge Plan Hospital Course: This is a 69-year-old male who approximatly 10 months ago had undergone a femoral-femoral bypass for a right occluded iliac artery and at that time underwent stenting of the right superficial femoral artery. He had done well initially and was supposed to see me back in a couple weeks to perform intervention of the left leg for completely occluded left superficial femoral artery. Unfortunately , he had an illness in the family and it has been 10 months. We planned to perform intervention of the left leg on 19 December , At that time however he had complete occlusion of the left superficial femoral artery and also the femoral-femoral graft was now occluded occluded. I could not get a wire across superficial femoral artery either from above or below. There appeared to be a dense plaque at the common femoral artery where the femoral-femoral graft was anastomosed to the common femoral artery. Therefore we elected to come back another day for open- hybrid procedure. He was brought back to the operating room on 21 December where he underwent left femoral endarterectomy, patch angioplasty, thrombectomy of the femoral-femoral graft with hybrid approach from the posterior tibial artery ankle and stenting of the left superficial femoral artery. He has done well and he and has excellent Doppler signals at the ankle on the left side. He also has good Doppler signal in the femoral-femoral graft. The right superficial artery stents are now occluded . He does however have good runoff on the right side through a large profunda artery. I will address the occluded right superficial femoral artery stent at a later time. After the first procedure he had a drop in his hemoglobin secondary to hematoma in the left arm from a needlestick. He did receive 1 unit of packed red blood cells. Hemoglobin at time of discharge is 8.2 g. and is stablre . He will be discharged home on his usual home medications with the inclusion of aspirin 81 mg daily as well as Xarelto 2.5 mg twice daily. He will follow-up in 1 week at that time we will plan intervention of the right leg. Patient Disposition: 01 HOME, SELF-CARE Condition: Stable Health Concerns: Post Hospitalization: new medications and changes needed to prevent readmission or further decline. Pt educated and given instructions on all concerns. Care Plan Goals: Problem: Pain/Alteration in Comfort Goal: Improve/ Resolve Pain; Achieve Pain Tolerance Instructions: Take pain medications as prescribed. Contact your primary care provider if your pain is unrelieved or worsens. Follow up with primary care provider as directed. Plan of Treatment: Continue with present treatment and follow up plan. Pt is to keep follow up appointment as instructed and take medications as ordered. Assessment: see hospital course Prescription drug monitoring program results: PDMP reviewed with concerns identified Prescriptions: New rivaroxaban [Xarelto] 2.5 mg tablet 2.5 mg PO BID Qty: 180 2RF oxycodone-acetaminophen [Percocet] 5-325 mg tablet 1 tab PO Q6H MDD 4 PRNQty: 30 0RF Continued atorvastatin 40 mg Tablet 20 mg PO QDAY trazodone 100 mg tablet 100 mg PO QPM hydrochlorothiazide 12.5 mg tablet 12.5 mg PO QDAY aspirin 81 mg Tablet,Delayed Release (Dr/Ec) 81 mg PO DAILY Qty: 120 6RF spironolactone 25 mg Tablet 25 mg PO DAILY Qty: 90 0RF amlodipine 10 mg Tablet 10 mg PO HS Qty: 90 3RF oxycodone-acetaminophen [Percocet] 5-325 mg tablet 1 tab PO Q6H MDD 4 PRNQty: 30 0RF hydrocodone-acetaminophen 10-325 mg tablet 1 tab PO DIRECTED Rx Instructions: 1 tab orally 5 times daily prn pain docusate sodium [Dulcolax Stool Softener (dss)] 100 mg capsule 100 mg PO BID Qty: 20 0RF Orders to Discharge Patient Discharge Orders: Discharge (Routine); Ordered 12/23/24 Ordered By: Raymundo Shields Follow ups/Referrals Follow ups/Referrals: [facility] [Other] Referral Note: Walker order sent on 12/22 FARA GALDAMEZ [Primary Care Provider] Referral Note: Follow up as needed. Raymundo Shields [STAFF PHYSICIAN, Unknown] - 01/01/25 3:45 pm Instructions Instructions: Anemia, Atherosclerosis, Poor Blood Flow (Peripheral Vascular Disease): What to Know, Endovascular Therapy for Peripheral Vascular Disease: W hat to Know After, Pain Medicine Instructions, [id number], How to Prevent Constipation After Surgery Stand Alone Forms: Find Help Web Site, Post Hospital Follow Up Care Print Language: NAURUAN
--- NOTE | 2024-12-25 10:38 | DR.OPNOTE ---
OP NOTE Pre-Op Diagnosis: Critic ischemia left leg Post-Op Diagnosis: same , see findings below Procedure Date Date Of Procedure: 12/21/24 Procedure: PROCEDURE: Left femoral endarterectomy with patch angioplasty, revision of left femoral-femoral bypass graft anastomosis with thrombectomy of femoral-femoral bypass graft, arteriogram left leg, arteriogram right leg, stenting of the left superficial femoral artery NARRATIVE: Patient was taken to the operating suite and both legs and the lower abdomen were prepped and draped in sterile fashion. Patient given intravenous sedation supervised by myself. Timeout for the procedure obtained. The left groin was injected with 0.5% Marcaine and the previous vertical incision was opened with #15 blade knife. Using sharp dissection the femoral-femoral bypass graft anastomosis was dissected free as was the common femoral artery, the profunda femoris artery and superficial artery. Vessel loops were placed around all of these. I could feel the stent in the left distal external iliac artery. Patient given 5000 units of of heparin. After 3 minutes the common femoral artery was clamped just below the stent in the left distal left external iliac artery. The vesel loops used to occlude all the other vessels. # 11 knife was used to dissected free the anastomosis of the femoral-femoral bypass graft and a # 5 John catheter used to perform thrombectomy of the femoral femoral bypass graft. At this point femoral endarterectomy was carried out with a [place] dissector dividing the plaque high up into the common femoral artery and removing the plaque from the common femoral artery down to the superficial femoral artery takeoff. Profunda femoris artery had no obvious occlusion. Once this was done a 0.8 cm x 8 cm long bovine pericardial graft was sewn into position over the femoral arteriotomy with running 5-0 Prolene suture. Clamps released and there were 2 areas of bleeding which were stopped along the graft with interrupted 6-0 Prolene sutures. Flow reestablished to the left leg. At this point the end of the femorofemoral bypass graft was freshened up and the common femoral artery clamped and a vertical incision made through the patch and the Gortex femoral bypass graft was anastomosed to the patch with running 5-0 Prolene suture reestablishing flow to the femoral- femoral graft once the clamps were released. There was some bleeding from the heel of the anastomosis which was stopped with interrupted 5-0 Prolene sutures. Patient had previously had placement of a left posterior tibial arterial sheath which been placed 2 days prior been and kept with infusion and subcutaneous therapeutic Lovenox. Arteriogram of the left leg through the left posterior tibial showed the posterior tibial artery was still open. The patient has complete occlusion of the entire left superficial artery from its takeoff to the adductor canal. While we were doing the endarterectomy the wire had been placed up and placed into the area of the patch. The wire under direct vision was then passed up into the iliac artery. Over the wire we performed stenting of the entire left superficial femoral artery using 3 Ailin 6 mm x 150 mm stents end to end end with 3 mm overlap and a 6 mm x 80 mm stent proximally at the area of the knee. All of these were balloon dilated with a 6 mm balloon. There was good flow through the superficial femoral artery with good runoff to the left foot. [place] catheter placed over the wire from the posterior tibial artery to the femoro-femoral graft and arteriogram showed femoral- femoral graft now to be patent however there appeared to be thrombus in the previously operated right superficial artery which had multiple stents. This will be addressed at a later time as the patient does not have acute ischemic problems of that leg at this time. The left inguinal groin incision was then closed with 2 layers of running 3-0 Vicryl suture and the skin closed with skin sameer. Dressing applied. The sheath in the left posterior artery was removed and the puncture site controlled with a tibial band. Patient taken to critical care unit for continued postoperative care and recovery . Type of Anesthesia: Local (0.5% Marcaine) Anesthesia Comment: Plus MAC Findings: Thrombosis of femoral-femoral graft, complete occlusion of the left common femoral artery where the femoral-femoral graft has anastomosis, complete occlusion of the left superficial artery from its takeoff to the popliteal artery reconstitution and two-vessel runoff via the posterior tibial and peroneal arteries. Type of Fluids Used:: Lactated Ringers Total Amount of Fluid Infused:: 1600cc Urine output: 300cc EBL: 250 cc Hardware: Ailin 6 mmx 150 mm stents x 3 , Ailin 6 mm x 80 mm stent Complications:: none Needle/Sponge Count:: correct Disposition/Condition: Pt. tolerated procedure without difficulty. Taken to CCU in stable condition.
[2024-12-25 13:14] VITALS: BP 130/61; PULSE 98; RESP 18; TEMP 99.1; O2SAT 98
--- NOTE | 2024-12-25 13:17 | NOTE.SOAP ---
Soap Note Note for Day of Date of Exam: 12/22/24 Subjective Data Subjective Data: Postoperative day #1 after left femoral endarterectomy and patch angioplasty, thrombectomy of the femoral-femoral graft with revision of the anastomosis of the femoral-femoral graft onto the patch as well as stenting of the left superficial femoral artery from the posterior tibial sheath which had previously been placed. Patient doing well with excellent Doppler signals in the left foot. No significant bleeding from the left groin wound. Dressing intact. Objective Data Temperature: 99.1 F Pulse Rate: 98 Respiratory Rate: 18 Blood Pressure: 130/61 O2 Sat by Pulse Oximetry: 98 Objective Data: Excellent biphasic Doppler signal of the left ankle both vessels. Assessment Assessment: Status post arterial intervention of the left leg as above. Plan Plan: Patient will be on anticoagulation with Xarelto and aspirin. Observe today, plan discharge tomorrow.
== END 2024-12-23 12:45 | disposition home or self-care (01) ==
LOC: MED/SURG 08:21 → SURG1 08:21
PROVIDERS: ADMIT Surgery; ATTEND Surgery
DX: E83.42 Hypomagnesemia; Z59.89 Other problems related to housing and economic circumstances; E83.51 Hypocalcemia; Z53.8 Procedure and treatment not carried out for other reasons; E78.5 Hyperlipidemia, unspecified; I70.222 Atherosclerosis of native arteries of extremities with rest pain, left leg; Y83.8 Other surgical procedures as the cause of abnormal reaction of the patient, or of later complication, without mention of misadventure at the time of the procedure; L76.32 Postprocedural hematoma of skin and subcutaneous tissue following other procedure; Z59.86 Financial insecurity; E87.1 Hypo-osmolality and hyponatremia; Z74.1 Need for assistance with personal care; D64.89 Other specified anemias; Z01.810 Encounter for preprocedural cardiovascular examination; Z79.01 Long term (current) use of anticoagulants; R00.1 Bradycardia, unspecified; I10 Essential (primary) hypertension; Z01.811 Encounter for preprocedural respiratory examination; T82.858A Stenosis of other vascular prosthetic devices, implants and grafts, initial encounter